=== PATIENT | female | born 1965 | race Caucasian/White ===

== ENCOUNTER 2020-01-01 15:23 | Outpatient (CLI) | payer BC, SELFPAY ==
--- NOTE | 2020-01-01 15:31 | MM_ITS ---
WS: [id number] BILATERAL DIGITAL SCREENING MAMMOGRAPHY WITH CAD CLINICAL INFORMATION: SCREENING HISTORY: Screening mammogram. No current complaints. COMPARISON: None. TECHNIQUE: Bilateral CC and MLO views. FINDINGS: The breasts are composed of heterogeneous fibroglandular density tissue, which can limit the detectio n of small underlying mass lesions. No suspicious mass, asymmetry, calcifications, or architectural d istortion. No evidence of malignancy. Vascular calcification. Benign punctate calcifications. MM/[place] [id number] IMPRESSION: BI-RADS: 2-Benign FOLLOW UP: 1 Year Follow-up Recommend return to annual screening mammography.
== END 2020-01-01 15:24 | disposition home or self-care (01) ==
PROVIDERS: PCP Family Medicine; Visit Provider Family Medicine
DX: Z12.31 Encounter for screening mammogram for malignant neoplasm of breast (principal)
CPT/HCPCS: 77067

== ENCOUNTER → 2020-01-20 08:00 | Outpatient (BNVA) | payer BC, SELFPAY | PROVIDERS: PCP Family Medicine; Referring Provider Family Medicine; Visit Provider Specialist | DX: R56.9 Unspecified convulsions (principal) | CPT/HCPCS: 95816 ==

== ENCOUNTER → 2020-02-12 10:14 | Outpatient (BNVA) | payer BC, SELFPAY | PROVIDERS: PCP Family Medicine; Referring Provider Family Medicine; Visit Provider Specialist | DX: G40.909 Epilepsy, unspecified, not intractable, without status epilepticus (principal) | CPT/HCPCS: 99204 ==

== ENCOUNTER 2020-03-26 06:55 | Outpatient (CLI) | payer BC, SELFPAY ==
[2020-03-26 07:15] VITALS: BMI 30.8
--- NOTE | 2020-03-26 08:02 | NMCV_ITS ---
NM kirti perf SPECT r/s* [id number] Mackenzie Bowser Age: 55 Gender: F : 1965 Exam Date: 03/26/2020 08:03 Ordering Phys: Alison Mireles MD Technologist: OSCAR Cox Exam Location: [facility] Indications: CHEST PAIN STRESS TEST Please see separate stress test report in [facility] for full findings IMAGE PROTOCOL Rest/Stress 1 Lexiscan Day Radiopharmaceutical Dose (mCi) Administration Site Administered by Rest: Tc-99m 11.0 IV OSCAR Cox Sestamibi Stress:Tc-99m 32.5 IV Alona Moreno, LOCAL CITY DRIVER Sestamibi Rest: 26-Mar-2020 60 Discovery 630 Stress: 26-Mar-2020 30 Discovery 630 0.4mg Lexiscan. Images obtained in supine and prone position. SPECT RESULTS Technical Quality: Excellent Raw Data Analysis: Normal Image Corrections: No attenuation or motion correction applied Summed Stress Score: 0 Summed Rest Score: 0 Summed Difference Score: 0 PERFUSION FINDINGS SPECT images demonstrate homogeneous tracer distribution throughout the myocardium. FUNCTIONAL RESULTS (calculated via Gated SPECT) Stress Image LV EF (%): 75 Stress EDV (mL):65 TID: 0.88 Stress ESV (mL):16 FUNCTIONAL FINDINGS: There is normal left ventricular systolic function. IMPRESSIONS Myocardial perfusion imaging is normal. LV systolic function is normal with EF of 75% Kemal Costa MD (Electronically Signed) Final Date: 26 March 2020 17:29 S
--- NOTE | 2020-03-26 08:42 | SUR.PREOP ---
Patient reports no pain or discomfort prior to the start of the procedure.
--- NOTE | 2020-03-26 08:45 | ECG_ITS ---
[facility] Test Date: 2020-03-26 Pat Name: Mackenzie Black Department: Room: Gender: Female Furniture Installer: : 1965 Requested By: Alison Mireles Order Number: [id number] Nails MD: Kemal Costa M.D. Interpretive Statements NAME OF STUDY: LEXISCAN SESTAMIBI STRESS TEST INDICATION: [Chest Pain] Procedure: At the baseline, the blood pressure was 144/91 mmHg, heart rate of 63 bpm. The electrocardiogram showed normal sinus bradycardia with normal axis with normal ST and T's. The Lexiscan was infused over a period of 20 seconds. A total of 0.4 mg of Lexiscan was infused. The stress phase was continued for a total of 5 minutes. Heart rate at the end of stress phase was 122 bpm, with blood pressure 148/88 mmHg. The EKG at the peak infusion revealed sinus tachycardia with no significant ST T wave changes. Sestamibi was injected 20 seconds after the Lexiscan was infused. Blood pressure at the end of recovery phase was 122/93 mmHg, with a heart rate of 86 bpm. Conclusion: 1. Normal EKG response to Lexiscan infusion. 2. No Lexiscan induced chest pain or cardiac arrhythmia. 3. Normal blood pressure and heart rate response. 4. Sestamibi/sestamibi perfusion scan pending; see separate report. Electronically Signed On 03-30-2020 9:40:53 POTATO SPOTTER by Kemal Costa M.D. [email or web address]
[2020-03-26] MEDS: regadenoson 0.4 Mg/5 ml Syringe IVP (08:50)
[2020-03-26 09:28] VITALS: BP 122/83; PULSE 93
--- NOTE | 2020-03-26 11:00 | USCV_ITS ---
Mackenzie Bowser Age: 55 Gender: F : 1965 Exam Date: 03/26/2020 07:13 Ordering Phys: Alison Mireles MD Technologist: Sharon Sevilla [place] [facility] [place]ication: CHEST PAIN BP: 136 / 81 HR: 66 Rhythm: Sinus Technical Quality: Fair MEASUREMENTS (Male / Female) Normal Values 2D ECHO LV Diastolic Diameter PLAX 3.6 cm 4.2 - 5.9 / 3.9 - 5.3 cm LV Systolic Diameter PLAX 2.9 cm LV Chamber Size 3.2 cm IVS Diastolic Thickness 1.7 cm 0.6 - 1.0 / 0.6 - 0.9 cm IVS Systolic Thickness 1.8 cm LVPW Diastolic Thickness 1.1 cm 0.6 - 1.0 / 0.6 - 0.9 cm LVPW Systolic Thickness 1.1 cm RV Chamber Size 1.6 cm LVOT Diameter 1.9 cm LV Ejection Fraction 2D Teich 44.0 % LV Ejection Fraction MOD 2C 60.9 % LV Ejection Fraction 2C AL 60.4 % LA Diameter 2.5 cm LA Width 1.7 cm LA Height 4.3 cm RA Width 2.4 cm RA Height 4.1 cm Aorta at Sinotubular Diameter 3.1 cm M-MODE LV Diastolic Diameter MM 4.8 cm 4.2 - 5.9 / 3.9 - 5.3 cm LV Systolic Diameter MM 3.4 cm LV Ejection Fraction MM Teich 55.4 % IVS Diastolic Thickness MM 1.2 cm 0.6 - 1.0 / 0.6 - 0.9 cm IVS Systolic Thickness MM 1.5 cm LVPW Diastolic Thickness MM 1.4 cm 0.6 - 1.0 / 0.6 - 0.9 cm LVPW Systolic Thickness MM 1.8 cm Aortic Annulus Diameter 3.5 cm LA Ao Ratio MM 1.0 MV E Point Septal Separation 0.4 cm DOPPLER AV Peak Velocity 120.0 cm/s LVOT Peak Velocity 83.0 cm/s AV Area Cont Eq vti 1.9 cm squared AV Area Cont Eq pk 2.0 cm squared MV Area PHT 3.4 cm squared Mitral E to A Ratio 0.6 MV E' Velocity 35.0 cm/s Mitral E to MV E' Ratio 8.3 Mitral E to LV E' Lateral Ratio 7.5 Mitral E to LV E' Septal Ratio 9.4 TV Peak E Velocity 41.0 cm/s Right Atrial Pressure 3.0 mmHg PV Peak Velocity 58.0 cm/s RV Acceleration Time 0.1 s RV Ejection Time 0.3 s RV AcT/ET 0.2 FINDINGS Left Ventricle Normal left ventricular size and systolic function. No regional wall motion abnormalities. LVEF is 50 to 55%. Mild left ventricular hypertrophy is noted. Grade 1 diastolic dysfunction is present. Right Ventricle The right ventricle is normal in size and function. Right Atrium The right atrium is normal in size. Left Atrium The left atrium is normal in size. Mitral Valve Structurally normal mitral valve without significant stenosis or prolapse. There is no mitral regurgitation. Aortic Valve Structurally normal aortic valve without significant sclerosis or stenosis. There is no aortic regurgitation. Tricuspid Valve Structurally normal tricuspid valve without significant stenosis. Trace tricuspid regurgitation. Insufficient TR jet to calculate RVSP. Pulmonic Valve Structurally normal pulmonic valve without significant stenosis. There is no pulmonic regurgitation. Pericardium Normal pericardium without effusion. Aorta Normal ascending aorta dimension. CONCLUSIONS LV systolic function is normal with EF of 50 to 55%. Grade 1 diastolic dysfunction is present. Mild left ventricular hypertrophy is noted. Trace tricuspid regurgitation is present. No comparison studies are available. Kemal Costa MD (Electronically Signed) Final Date: 05 April 2020 18:58 S
--- NOTE | 2020-03-26 11:45 | MR_ITS ---
WS: [id number] MRI HEAD WITHOUT CONTRAST TECHNIQUE: Sagittal T1, T2 axial, T2 axial FLAIR, axial and coronal T1 images, axial susceptibility w eighted imaging, axial diffusion weighted images, and coronal T2 images were obtained. CLINICAL INFORMATION: R55 Syncope and collapse COMPARISON: None. FINDINGS: No evidence of restricted diffusion to suggest acute ischemia. Ventricular system and basal cisterns are patent. Mild small vessel changes. Mild parenchymal volume loss. Normal cerebellum. Normal vascul ar flow voids at the skull base. No extra axial fluid collections. Paranasal sinuses and mastoid air cells are well aerated. No hemosiderin on the susceptibly weighted images. Normal optic chiasm and pituitary infundibulum. Mild symmetric atrophy involving the temporal lobes a nd hippocampal formations. MR/MR head wo con* [id number] IMPRESSION: 1. No evidence of restricted diffusion to suggest acute ischemia. 2. Mild small vessel changes with mild parenchymal volume loss. 3. No extra-axial fluid collections. No evidence of mass or mass effect. 4. No hemosiderin on susceptibly weighted images. 5. Mild symmetric atrophy involving the temporal lobes and hippocampal formati ons.
== END 2020-03-26 06:56 | disposition home or self-care (01) ==
PROVIDERS: PCP Family Medicine; Visit Provider Specialist
DX: R07.9 Chest pain, unspecified (principal); R55 Syncope and collapse
CPT/HCPCS: 70551; 78452; 93017; 93306; A9500; J2785

== ENCOUNTER 2020-03-31 20:00 | Outpatient (CLI) | payer BC, SELFPAY | END 2020-03-31 20:01 | disposition home or self-care (01) | LOC: SLEEP 04-01 14:56 | PROVIDERS: PCP Family Medicine; Visit Provider Internal Medicine | DX: G47.10 Hypersomnia, unspecified (principal) | CPT/HCPCS: 95810 ==

== ENCOUNTER → 2020-04-02 11:38 | Outpatient (BNVA) | payer BC, SELFPAY | PROVIDERS: PCP Family Medicine; Referring Provider Specialist; Visit Provider Specialist | DX: R55 Syncope and collapse (principal); R56.9 Unspecified convulsions | CPT/HCPCS: 95816 ==

== ENCOUNTER → 2020-04-08 15:20 | Outpatient (BNVA) | payer BC, SELFPAY | PROVIDERS: PCP Family Medicine; Visit Provider Specialist | DX: R55 Syncope and collapse (principal); E11.9 Type 2 diabetes mellitus without complications; Z79.84 Long term (current) use of oral hypoglycemic drugs; Z79.899 Other long term (current) drug therapy; I10 Essential (primary) hypertension | CPT/HCPCS: 99214 ==

== ENCOUNTER → 2020-05-06 15:25 | Outpatient (BNVA) | payer BC, SELFPAY | PROVIDERS: PCP Family Medicine; Visit Provider Internal Medicine | DX: Z01.818 Encounter for other preprocedural examination (principal); R07.9 Chest pain, unspecified; Z11.59 Encounter for screening for other viral diseases | CPT/HCPCS: 80048; 85025; 85610; 87635 ==

== ENCOUNTER 2020-05-11 08:54 | Day surgery (SDC) | payer BC, SELFPAY ==
[2020-05-11] VITALS (20 sets, daily range): BP systolic 131–162; BP diastolic 73–102; PULSE 59–84; RESP 9–23; TEMP 37; O2SAT 95–98; BMI 30.8
--- NOTE | 2020-05-11 09:00 | XACV_ITS ---
Ht: 160 cm Wt: 79 kg BSA: 1.90 m2 Gender: Female : 1965 Any Known Allergies: No known allergies Exam Priority: Routine Procedure(s): Procedure Description: Diagnostic procedure Procedure Description: Left ventriculography Procedure Description: Coronary Angiography Procedure Description: Left heart cath Diagnostic Cath Status: Elective Diagnostic Findings * LM has mild luminal irregularities.. * LAD arises from left main artery. It gives rise to 2 diagonal arteries. LAD is free of significant disease and has minor luminal irregularities. Second diagonal branch is a small vessel with ostial to proximal 70% stenosis.. * CX arises from left main artery. It gives rise to moderate-sized OM branch. Left circumflex artery is free of significant disease and has minor luminal irregularities.. * RCA arises from right coronary cusp. Has minor luminal irregularities.. * Coronary angiography shows right dominance. Conclusions 1. There is 70% stenosis of second diagonal artery. It is a small sized vessel. 2. No significant disease noted in the Left Main, LAD, Circumflex, or RCA coronary arteries. 3. Normal left ventricular systolic function. Ejection fraction of 55%. Recommendations * If patient keeps getting chest pain, can consider adding Imdur. Diagnostic RX Recommendation: medical therapy and/or counseling Ventriculography Ejection Fraction: 55.0 % Pressures Phase:Rest AO : 145 / 73 ( 107 ) @ 4:19:00 AM 145 / 63 ( 104 ) @ 4:19:00 AM LV : 128 / -10 / @ 4:18:00 AM 138 / -18 / @ 4:19:00 AM 127 / -13 / @ 4:19:00 AM Valves Phase:DefaultPhase AV : 0.0 @ 10:29:45 AM AV Mean Gradient: 0.0 @ 10:29:45 AM Clinical Evaluation EBL: 5mL-10mL Procedural Details Procedure Consent Obtained. Pre-Procedure Time Out. Identified patient by full name and date of as verbalized by the patient/guarantor. Does the consent match the physician's order: Yes. Accurate & Complete Informed Consent: Yes. Inpatient/Outpatient History & Physical on Chart: Yes. If H&P is completed, is and addenduem needed: No; If yes, is the addendum complete: N/A. Visualize and Verify Site with Patient/Guarantor: N/A. Relevant Radiology Images available: Yes. Pre-op teaching completed and patient verbalized understanding. The risks, benefits, and alternatives of sedation and/or procedure were discussed by physician. The patient agrees to continue. Procedure started. [facility] Clinical Fraility Score: 2: Well. Engine Turner Indications: Suspected CAD. Chest Pain Symptom Assessment: Typical Angina Symptoms. Cardiovascular Instability: No. Correct patient, site and procedure confirmed by cath team. Current diagnosis: Chest Pain. PERRLA. Strong, equal hand program counselor bilaterally. Lungs clear x 5 lobes. IV Site on Arrival: 20 gauge in the right anticubital. IV Fluids: 0.9% NaCl at KVO. 0 mL infused prior to asphalt plant laborer. Pre Procedural Pulses: bilateral dorsalis pedis was 2+. Pre Procedural Pulses: bilateral posterior tibial was 2+. Pre Procedural Pulses: bilateral radial was 3+. Oxygen started at 2liters/min via nasal canula. bilateral groins was prepped with chloroprep then draped in the usual sterile fashion. right radial was prepped with chloroprep then draped in the usual sterile fashion. Physician arrived. Equipment: 6F - Radial. Cardiac Cath Pack. ACIST Manifold Kit Model BT 2000. Heparinized Saline (2 units/mL), 1000 mL bag. Baseline sample Acquired. HR: 64 BPM. Physician scrubbed in. Immediate Pre-Procedure Time Out. Correct Patient: Yes; Correct Procedure: Yes; Correct Site: Yes; Correct Patient Position: Yes; Correct Supplies: Yes; Dried Flammable Prep: Yes; Blood Products Available: No;. Lidocaine 1% infiltrated to the right radial. Arterial access obtained. A 5 colombian TIG catheter in over wire. Multiple views taken of left coronary artery. Catheter redirected to the RCA. Multiple views taken of right coronary artery. Catheter removed over the exchange wire. A 5 colombian Angled Pig catheter in over wire. EDP Sample taken: LV 128/-11,6; HR: 96 BPM; SpO2: 97%. LV gram performed in CRUZ @ 10 mL/second for a total of 30 mL. EDP Sample taken: LV 138/-19,3; HR: 100 BPM; SpO2: 98%. Pullback taken: LV 127/-14,-1; AO 145/73(107); Mean: 0mmHg, Peak to Peak: 0mmHg, SEP: 7sec/min; HR: 91 BPM; SpO2: 97%. Catheter out. TR band placed. Hemostasis obtained. A TR Band was successful obtaining hemostatsis at the Right Femoral artery insertion site. Post Procedure: Pulses reassessed and unchanged. PERRLA. Strong, equal hand program counselor bilaterally. No VTE prophylaxis required. Medication's Wasted: Lidocaine 1% = 18 mL. Medication's Wasted: Nitro = 49.8 mg. Medication's Wasted: Heparin = 1000 units. Total IV fluids: 14 mL. Post-op diagnosis: Non obstructive CAD. Complications: None. Estimated blood loss: 5mL-10mL. Vital chart was stopped. Procedure completed. Patient transferred by wheelchair to 1st floor. Access Site Site: Right Femoral artery Sheath Size: 6 Fr Hemostasis Method: TR Band Hemostasis Success: Successful Procedure Medications Start: 9:58 AM Stop: 9:58 AM Medication: Versed Amount: 1 mg Route: I.V. Start: 9:58 AM Stop: 9:58 AM Medication: Fentanyl Amount: 50 mcg Route: I.V. Start: 10:01 AM Stop: 10:01 AM Medication: Versed Amount: 1 mg Route: I.V. Start: 10:04 AM Stop: 10:04 AM Medication: Fentanyl Amount: 50 mcg Route: I.V. Start: 10:07 AM Stop: 10:07 AM Medication: Versed Amount: 1 mg Route: I.V. Start: 10:09 AM Stop: 10:09 AM Medication: Heparin Amount: 5000 units Route: I.V. Start: 10:11 AM Stop: 10:11 AM Medication: Versed Amount: 1 mg Route: I.V. I, the attending physician, have reviewed and verified all procedure medications. Yes, all medications given per verbal order History/Risk Factors Hypertension: Yes Dyslipidemia: Yes Peripheral Arterial Disease (PAD): No Myocardial Infarction (NC): No Obesity: No Renal Disease: No Tobacco Use: Never Prior Interventions PCI: No CABG: No Valve Surgery: No Report Signatures Finalized by Kemal Costa MD on 05/11/2020 06:35 PM
[2020-05-11] MEDS: diphenhydrAMINE 50 mg Capsule PO (09:11)
--- NOTE | 2020-05-11 09:54 | P.HP_ITS ---
Providers/Chief Complaint Primary Care Provider: Marine Brown MD History of Present Illness 55-year-old woman with past medical history of hypertension, hyperlipidemia, was referred by Dr. Mireles for evaluation of pause noted on event monitor and syncopal episodes. Patient had 3 syncopal/presyncopal episodes before she was put on a heart monitor. On night of 02/19/2020, at 1:56 AM patient had long pause of 4.2 seconds on secured entrance monitor. Patient was asleep at the time. Patient has been having dizzy and presyncopal episodes. Her chest pain has been getting worse. She feels heavy pressure in the middle of the chest. She says at times it is associated with sweating. He has occasionally noted that it has radiated her jaw as well. It is not always exertional. She had undergone nuclear stress test that was normal however she says chest pain frequency and intensity is increasing and she feels very worried because of the heavy pressure. Review of Systems Narrative: CONSTITUTIONAL: No fever chills weight loss or gain or night sweats. [] HEENT: Normocephalic, atraumatic.[] RESPIRATORY: No cough, sputum, hemoptysis or wheezing.[] CARDIOVASCULAR: Has chest pain,No shortness of breath, PND, orthopnea, lower extremity edema, presyncope or syncope. [] GI: no nausea vomiting diarrhea. [] WARD HELPER: Has dizziness and presyncopal episodes, No numbness, tingling, weakness or loss of function in any part of the body. [] MUSCULOSKELETAL: No knee or joint pain or rashes. [] Medications/Allergies Home Medications Medication Instructions Recorded Confirmed Last Taken Type atorvastatin 20 mg tablet 20 mg PO DAILY 01/20/20 05/08/20 05/01/20 History dulaglutide 0.75 mg/0.5 mL See Rx Instructions .ROUTE .COMPLEX 01/20/20 05/08/20 05/07/20 History subcutaneous pen injector escitalopram oxalate 20 mg tablet 20 mg PO DAILY 01/20/20 05/08/20 05/01/20 History losartan 25 mg tablet 25 mg PO DAILY 01/20/20 05/08/20 05/01/20 History metformin 500 mg tablet 500 mg PO BID tab 03/04/20 05/08/20 05/01/20 History Levemir Flexpen 70 units SUBCUT DAILY 05/08/20 05/11/20 05/10/20 History Allergies Allergy/AdvReac Type Severity Reaction Status Date / Time No Known Allergies Allergy Verified 04/08/20 15:51 PFSH Acute PFSH: Medical History Hyperlipidemia Hypertension Seizures Syncope Family History Grandmother Dementia Mother Diabetes Father Hyperlipidemia Denies family history of Cancer Vitals/I&O/Wt Last Vital Signs Temp 98.6 F 05/11/20 09:39 Pulse 74 05/11/20 09:39 Resp 20 H 05/11/20 09:39 BP 131/102 05/11/20 09:39 Pulse Ox 98 05/11/20 09:39 Weight last 48 hrs Weight 174 lb Physical Exam Narrative: EXAM NARRATIVE: GENERAL: Patient is alert, awake and oriented x3. [] NECK: No jugular vein distension. [] HEENT: No cyanosis. No icterus. No pallor. [] HEART: Regular S1 and S2. No murmur, rub or gallop. [] LUNGS: Clear to auscultate bilaterally. [] ABDOMEN: Soft, nontender and nondistended. Positive bowel sounds. No guarding, rebound or tenderness. [] CENTRAL NERVOUS SYSTEM: Grossly nonfocal. [] EXTREMITIES: Lower extremities with no edema bilaterally. Pulses palpable in the lower extremities, both dorsalis pedis and posterior tibial. [] A&P Assessment and plan (1) Hypertension: Status: Acute (2) Chest pain: Status: Acute (3) Worsening angina: Status: Acute (4) Syncope: Status: Acute (5) Hyperlipidemia: Status: Acute Patient has been having worsening angina and has risk factors for coronary artery disease. She also had syncopal episodes with no significant pause noted on event monitor however at that time she was sleeping. Stress test was normal however given her risk factors and typical worsening chest pain, we will proceed with coronary angiography with possible percutaneous coronary intervention. I have discussed in details the risks and benefits of the procedure. Risks including bleeding, infection, abnormal kidney function, abnormal heart rhythm, heart attack, stroke or have been described. Patient understands the risks and benefits and wants to proceed with the procedure. Attestations Medical Necessity Statement*: Care not expected to cross 2 midnights. Coding Level of Care Code Acute Tax Senior Associate for g Fwd Diagnoses Hypertension I10 Chest pain R07.9 Worsening angina I20.0 Syncope R55 Hyperlipidemia E78.5
== END 2020-05-11 15:00 | disposition home or self-care (01) ==
LOC: CCL 08:55 → CSU 11:09
PROVIDERS: PCP Family Medicine; Visit Provider Internal Medicine
DX: I25.110 Atherosclerotic heart disease of native coronary artery with unstable angina pectoris (principal); I10 Essential (primary) hypertension; R07.9 Chest pain, unspecified; R55 Syncope and collapse; E78.5 Hyperlipidemia, unspecified
CPT/HCPCS: 12345; 36415; 93452; C1769; C1887; C1894; J1644; J2250; J3010; J3490; J7030; Q0163; Q9967

== ENCOUNTER → 2020-06-25 12:59 | Outpatient (BNVA) | payer BC, SELFPAY | PROVIDERS: PCP Family Medicine; Visit Provider Internal Medicine | DX: Z01.812 Encounter for preprocedural laboratory examination (principal) | CPT/HCPCS: 87635 ==

== ENCOUNTER 2020-06-29 05:50 | Day surgery (SDC) | payer BC, SELFPAY ==
[2020-06-26 10:42] VITALS: BMI 31.8
[2020-06-29 06:32] VITALS: BP 163/110; PULSE 60; RESP 12; TEMP 36.8; O2SAT 99
[2020-06-29 06:48] LABS: Basophils # 0.1 10^3/uL (0.0-0.1); Basophils % 0.8 %; Eosinophils # 0.2 10^3/uL (0.0-0.8); Eosinophils % 2.3 %; Hematocrit 38.2 % (37.0-47.0); Hemoglobin 12.8 g/dL (11.5-15.3); Lymphocytes # 3.2 10^3/uL (0.8-4.8); Lymphocytes % 49.3 %; Mean Corpuscular HGB Conc 33.5 g/dL (30.0-36.0); Mean Corpuscular Hemoglobin 30.8 pg (28.0-34.0); Mean Corpuscular Volume 91.8 fL (81-99); Mean Platelet Volume 9.8 fL (7.4-10.4); Monocytes # 0.4 10^3/uL (0.2-0.9); Monocytes % 6.5 %; Neutrophils # 2.65 10^3/uL (1.8-7.7); Neutrophils % 40.9 %; Nucleated Red Blood Cells % 0 %; Platelet Count 213 10^3/cmm (130-400); Red Blood Count 4.16 10^6/uL (4.1-5.3); White Blood Count 6.5 10^3/uL (4.0-10.0)
[2020-06-29] MEDS: cephALEXin 500 mg Capsule 2000 MG PO (07:01)
--- NOTE | 2020-06-29 07:41 | W.PM.OPSUD ---
Surgery/Procedure H&P Update DATE OF PROCEDURE: June 29, 2020 DATE H&P PERFORMED: 06/15/20 H&P UPDATE INFORMATION: I have reviewed H&P completed within last 30 days PREOP DIAGNOSIS: Syncope/near syncope PRIMARY INDICATION FOR PROCEDURE: Same as above PLANNED PROCEDURE: Operation Date: 06/29/20 07:00 Proposed Procedures p Loop Recorder Insertion(Not Applicable) - Naresh Grant MD
--- NOTE | 2020-06-29 07:42 | PM.OP ---
Operative Report Date of procedure: June 29, 2020 Pre-op Diagnosis: Syncope/near syncope Procedure: LOCATION: Cardiac Catheterization Laboratory REFERRING PROVIDER: Dr. Costa PREOPERATIVE DIAGNOSIS: Syncope/near syncope. POSTOPERATIVE DIAGNOSIS: The same. ESTIMATED BLOOD LOSS: None. COMPLICATIONS: None. BRIEF HISTORY: 55-year-old white female with history of hypertension, diabetes is presenting with complaints of syncope/near syncope. She had episodes of pauses on event monitor but apparently these pauses were noted while she was asleep. She had no documented symptomatic bradycardia arrhythmias while awake. Because of her ongoing symptoms, for further evaluation of the symptoms, an implantable bus driver/monitor was requested. PROCEDURE: The procedure was explained to the patient in detail with the risks and benefits. The risk of bleeding, hematoma, infection and other complications were explained in detail with the patient, which she understood well and consented to proceed. She was given 2 g of Keflex p.o., 30 minutes prior to the procedure. The patient was brought to the CPRU. The left side of the chest was cleaned and draped in a sterile fashion. 1% Xylocaine was used as local anesthetic agent. An incision was made in the left fourth intercostal space. Making use of the application device, the implantable bus driver/monitor was inserted, subcutaneously. 5 minutes of manual pressure was applied, at the puncture site.The subcutaneous tissue was approximated using 3-0 Surgilon . No bleeding or hematoma. .Steri-Strips were applied over the insertion site followed by a sterile dressing. Patient tolerated the procedure very well and there are no complications IMPLANTED DEVICE Reveal LINQ Model number: [id number] Serial number: [id number] Make: Medtronic Parameters: Standard settings are applied -tachycardia rate of 150 beats per minute , bradycardia rate of 40 beats per minute and a pause of 3 seconds ; symptom recording -4 episodes of 7.5 minutes. Atrial fibrillation detection was turned on- recording threshold of ->6 minutes. Sensitivity was kept at 0.035 mV The R wave sensing was 0.29 mV
[2020-06-29 07:50] VITALS: BP 145/97; PULSE 61; RESP 14; TEMP 36.8; O2SAT 100
== END 2020-06-29 08:25 | disposition home or self-care (01) ==
PROVIDERS: PCP Family Medicine; Visit Provider Internal Medicine Cardiovascular Disease
PROC: (CPT 33285; principal; 2020-06-29 07:00)
DX: R42 Dizziness and giddiness (principal); I10 Essential (primary) hypertension; E78.5 Hyperlipidemia, unspecified
CPT/HCPCS: 12345; 33285; 85025; C1764; C1769

== ENCOUNTER 2020-11-10 10:07 | Outpatient (CLI) | payer BC, SELFPAY ==
--- NOTE | 2020-11-10 10:24 | CT_ITS ---
WS: [id number] CT LUMBAR SPINE TECHNIQUE: Noncontrast CT of the lumbar spine with coronal and sagittal reformatted images. CLINICAL INFORMATION: LOW BACK PAIN, RADIATING TO LEFT LEG COMPARISON: None. DLP: 1930.[address] scans at [facility] use at least one of these dose optimization techniques: automat ed exposure control; mA and/or kV adjustment per patient size (includes targeted exams where dose is matched to clinical indication); or iterative reconstruction. FINDINGS: Degenerative arthritis worse at the L3-4 level with disc space narrowing and endplate sclerosis. Mild disc space narrowing L5-S1. Disc bulging worse at L4-L5 and L5-S1. L1-L2: Normal. L2-L3: Mild annular bulging. Mild facet arthropathy. Spinal canal and foramen are patent. L3-L4: Disc desiccation at this level with complete loss of the disc space. Endplate sclerosis with s ubchondral cystic change. Osteophytic ridging results in moderate central canal stenosis. Moderate fa cet arthropathy. Right eccentric disc bulging with moderate right and no significant left foraminal n arrowing. L4-L5: Disc bulging eccentric to the left with mild central canal stenosis. Impingement on the left s ubarticular recess. Moderate facet arthropathy. Left foraminal protrusion impinges the exiting left L 4 nerve root with moderate left foraminal narrowing. Mild right foraminal narrowing. L5-S1: Mild disc bulging with slight effacement of ventral thecal sac. Right eccentric disc osteophyt e complex impinges the exiting right L5 nerve root. Moderate right foraminal narrowing. Left foramen is patent. Adrenal glands are normal. Cholecystectomy clips. CT/CT lumbar spine wo con* [id number] IMPRESSION: 1. Advanced disc desiccation L3-4 with complete loss of disc space height. End plate sclerosis L3-4 with subchondral cystic change. 2. Moderate central canal stenosis L3-4 with moderate right L3-4 foraminal rehan rowing. 3. Left foraminal protrusion L4-5 impinges the exiting left L4 nerve root with moderate left foraminal narrowing. 4. Mild central canal stenosis L4-5. 5. Moderate right L5-S1 foraminal narrowing impinges the exiting right L5 nerv e root laterally.
== END 2020-11-10 10:08 | disposition home or self-care (01) ==
PROVIDERS: PCP Family Medicine; Visit Provider Family Medicine
DX: M54.16 Radiculopathy, lumbar region (principal); M48.061 Spinal stenosis, lumbar region without neurogenic claudication; M51.26 Other intervertebral disc displacement, lumbar region
CPT/HCPCS: 72131

== ENCOUNTER → 2020-12-03 13:34 | Outpatient (BNVA) | payer BC, SELFPAY | PROVIDERS: PCP Family Medicine; Referring Provider Family Medicine; Visit Provider Orthopaedic Surgery | DX: M47.896 Other spondylosis, lumbar region (principal); M54.5 Low back pain | CPT/HCPCS: 72120 ==

== ENCOUNTER → 2020-12-18 08:42 | Outpatient (BNVA) | payer BC, SELFPAY | PROVIDERS: PCP Nurse Practitioner Family; Referring Provider Orthopaedic Surgery; Visit Provider Anesthesiology Pain Medicine | DX: G89.29 Other chronic pain (principal); M54.42 Lumbago with sciatica, left side; M48.062 Spinal stenosis, lumbar region with neurogenic claudication; M47.816 Spondylosis without myelopathy or radiculopathy, lumbar region; M54.16 Radiculopathy, lumbar region; Z87.891 Personal history of nicotine dependence | CPT/HCPCS: 99205 ==

== ENCOUNTER 2020-12-31 08:23 | Outpatient (CLI) | payer BC, SELFPAY ==
--- NOTE | 2020-12-31 | IR_ITS ---
WS: [id number] LUMBAR MYELOGRAM HISTORY: LOW BACK PAIN COMPARISON: None available. FLUOROSCOPY TIME: 3.0 minutes. Procedure, risks and complications were explained to the patient. Risks including bleeding, infection , headaches, allergic reaction and seizures. Consent has been obtained. With the patient in prone position the skin over the lumbar region is cleansed with ChloraPrep and an esthetized with lidocaine. 22-gauge spinal needle is inserted into the thecal sac at the appropriate level determined by fluoroscopy. Omnipaque 240; 12 ml is injected slowly under fluoroscopy with no co mplications. Needle bevel is perpendicular to the longitudinal fibers of the dura. Stylet is reinsert ed prior to removal of the needle. Patient tolerated the procedure well. Patient will proceed to CT f or further evaluation. Severe disc space narrowing and desiccation at L3-4 with osteophyte formation. Mild disc space narrow ing at L4-5 and L5-S1. Straightening of the normal lumbar lordosis. There is mild extrinsic mass effe ct upon the ventral thecal sac at L3-4 and L4-5. Scattered calcifications in aorta. Prior cholecystectomy. IR/IR myelogram sp lumbar [id number] IMPRESSION: 1. Uncomplicated lumbar myelogram. 2. Severe degenerative disc disease at L3-4 with mild at L4-5 and L5-S1. 3. Straightening of the normal lumbar lordosis. 4. Mild extrinsic mass effect upon the ventral thecal sac at L3-4 and L4-5. Th is will be better evaluated on the CT evaluation to follow.
--- NOTE | 2020-12-31 08:48 | CT_ITS ---
WS: [id number] CT MYELOGRAM LUMBAR SPINE HISTORY: M48.062 - Spinal stenosis, lumbar region with neurogenic claudication. TECHNIQUE: Contiguous 2.5 mm axial imaging performed from T12 through the mid sacral level. Bone and soft tissue windows reviewed. Sagittal and coronal reformats are submitted and reviewed. DLP: 1598.[address] scans at [facility] use at least one of these dose optimization techniques: automat ed exposure control; mA and/or kV adjustment per patient size (includes targeted exams where dose is matched to clinical indication); or iterative reconstruction. COMPARISON: 11/10/2020 Good distention of the thecal sac with contrast. Severe disc space narrowing and desiccation at L3-4. There is near bone upon bone with loss of the disc. Air along the L3-4 disc space with osteophytes e xtending anterior and posterior. There is osteophyte encroachment and deformity of the ventral thecal sac at the L3-4 level. No fractures. Additional mild disc space narrowing and desiccation at L5-S1. L1-L2: Very slight annular disc bulging with a tiny calcification at the disc. No stenosis. L2-L3: Mild annular disc bulging with ligamentum flavum flavum hypertrophy. No stenosis. L3-L4: Diffuse annular disc bulging and osteophytic ridging. Osteophyte and disc encroachment upon th e ventral thecal sac. Additional encroachment into the central canal by ligamentum flavum and facet h ypertrophy. Moderate central and bilateral subarticular recess and foraminal stenosis. Osteophyte in the LEFT subarticular recesses encroaching upon the L4 nerve root. L4-L5: Moderate annular disc bulging with a focal LEFT paracentral and foraminal disc protrusion. Dis c protrusion is contacting and displacing the LEFT thecal sac and L5 nerve root and also extending in to the foramen contacting the L4 nerve root. Mild RIGHT with moderate to severe LEFT foraminal stenos is. Mild central stenosis. L5-S1: Mild annular disc bulging and osteophytic ridging. Disc osteophyte complexes extend into the f oramen. Largest on the RIGHT causing moderate to severe RIGHT foraminal stenosis and mild LEFT forami nal stenosis. Most significant contact on the RIGHT L5 nerve root. Atherosclerosis aorta and common iliac arteries. Mild thickening of the LEFT adrenal gland. CT/CT lumbar spine w con [id number] IMPRESSION: 1. Severe degenerative disc desiccation at L3-4 with complete loss of disc spa ce height. 2. Moderate central, bilateral subarticular and foraminal stenosis at L3-4. Mo re focal osteophyte in the LEFT subarticular recess with encroachment upon the L4 nerve root. 3. LEFT paracentral and foraminal disc protrusion at L4-5 with the disc contac ting the L4 and L5 nerve roots. Moderate to severe LEFT foraminal stenosis. 4. Mild central and RIGHT foraminal stenosis at L4-5. 5. Disc osteophyte contact in the exiting RIGHT L5 nerve root at L5-S1. Modera te to severe RIGHT L5-S1 foraminal stenosis.
== END 2020-12-31 08:24 | disposition home or self-care (01) ==
PROVIDERS: PCP Nurse Practitioner Family; Visit Provider Orthopaedic Surgery
DX: M48.062 Spinal stenosis, lumbar region with neurogenic claudication (principal); M51.36 Other intervertebral disc degeneration, lumbar region; M48.061 Spinal stenosis, lumbar region without neurogenic claudication; M25.78 Osteophyte, vertebrae; M51.37 Other intervertebral disc degeneration, lumbosacral region
CPT/HCPCS: 62304; 72120; 72132; Q9966

== ENCOUNTER → 2021-01-08 12:33 | Outpatient (BNVA) | payer BC, SELFPAY | PROVIDERS: PCP Nurse Practitioner Family; Visit Provider Anesthesiology Pain Medicine | DX: Z01.812 Encounter for preprocedural laboratory examination (principal); E11.9 Type 2 diabetes mellitus without complications; G89.29 Other chronic pain; M54.16 Radiculopathy, lumbar region | CPT/HCPCS: 36416; 64483; 64484; 82962; J1100; J3490 ==

== ENCOUNTER → 2021-01-22 13:38 | Outpatient (BNVA) | payer BC, SELFPAY | PROVIDERS: PCP Nurse Practitioner Family; Visit Provider Anesthesiology Pain Medicine | DX: Z01.812 Encounter for preprocedural laboratory examination (principal); E11.9 Type 2 diabetes mellitus without complications; G89.29 Other chronic pain; M54.16 Radiculopathy, lumbar region | CPT/HCPCS: 36416; 64483; 64484; 82962; J1100; J3490 ==

== ENCOUNTER → 2021-02-04 14:13 | Outpatient (BNVA) | payer BC, SELFPAY | PROVIDERS: PCP Nurse Practitioner Family; Visit Provider Anesthesiology Pain Medicine | DX: G89.29 Other chronic pain (principal); M48.062 Spinal stenosis, lumbar region with neurogenic claudication; M47.816 Spondylosis without myelopathy or radiculopathy, lumbar region; M54.16 Radiculopathy, lumbar region; M79.605 Pain in left leg | CPT/HCPCS: 99214 ==

== ENCOUNTER → 2021-02-16 13:21 | Outpatient (BNVA) | payer BC, SELFPAY | PROVIDERS: PCP Nurse Practitioner Family; Visit Provider Anesthesiology Pain Medicine | DX: G89.29 Other chronic pain (principal); M47.816 Spondylosis without myelopathy or radiculopathy, lumbar region | CPT/HCPCS: 64493; 64494; 64495 ==

== ENCOUNTER → 2021-03-05 10:52 | Outpatient (BNVA) | payer BC, SELFPAY | PROVIDERS: PCP Nurse Practitioner Family; Visit Provider Anesthesiology Pain Medicine | DX: G89.29 Other chronic pain (principal); M48.062 Spinal stenosis, lumbar region with neurogenic claudication; M47.816 Spondylosis without myelopathy or radiculopathy, lumbar region; M54.16 Radiculopathy, lumbar region; M79.605 Pain in left leg; E11.9 Type 2 diabetes mellitus without complications; I10 Essential (primary) hypertension; Z87.891 Personal history of nicotine dependence | CPT/HCPCS: 99214 ==

== ENCOUNTER → 2021-03-31 13:29 | Outpatient (BNVA) | payer BC, SELFPAY | PROVIDERS: PCP Nurse Practitioner Family; Visit Provider Anesthesiology Pain Medicine | DX: M47.816 Spondylosis without myelopathy or radiculopathy, lumbar region (principal); M54.16 Radiculopathy, lumbar region; Z87.891 Personal history of nicotine dependence | CPT/HCPCS: 64493; 64494; 64495; J3490 ==

== ENCOUNTER → 2021-04-21 10:55 | Outpatient (BNVA) | payer BC, SELFPAY | PROVIDERS: PCP Nurse Practitioner Family; Visit Provider Anesthesiology Pain Medicine | DX: G89.29 Other chronic pain (principal); M48.062 Spinal stenosis, lumbar region with neurogenic claudication; M47.816 Spondylosis without myelopathy or radiculopathy, lumbar region; M54.16 Radiculopathy, lumbar region; M25.551 Pain in right hip; M79.605 Pain in left leg | CPT/HCPCS: 99214 ==

== ENCOUNTER → 2021-05-12 13:50 | Outpatient (BNVA) | payer BC, SELFPAY | PROVIDERS: PCP Nurse Practitioner Family; Visit Provider Anesthesiology Pain Medicine | DX: E11.9 Type 2 diabetes mellitus without complications (principal); Z01.812 Encounter for preprocedural laboratory examination | CPT/HCPCS: 36416; 82962 ==

== ENCOUNTER → 2021-05-25 13:41 | Outpatient (BNVA) | payer BC, SELFPAY | PROVIDERS: PCP Nurse Practitioner Family; Visit Provider Anesthesiology Pain Medicine | DX: Z01.812 Encounter for preprocedural laboratory examination (principal) | CPT/HCPCS: 36416; 82962 ==

== ENCOUNTER 2021-06-30 10:40 | Emergency (ER) | payer BC, SELFPAY ==
[2021-06-30 10:47] VITALS: PULSE 81; RESP 18; TEMP 36.9; O2SAT 100; BMI 30.9
--- NOTE | 2021-06-30 10:53 | CT_ITS ---
WS: [id number] CT HEAD NONCONTRAST HISTORY: possible stroke yesterday TECHNIQUE: Contiguous axial imaging performed through the brain in 2.5 mm imaging. Bone and soft tiss ue windows. Sagittal and coronal reformats reviewed. All CT scans at [facility] use at least one of these dose optimization techniques: automated exposure control; mA and/or kV adjustment per pa tient size (includes targeted exams where dose is matched to clinical indication); or iterative recon struction. DLP: 939.74 mGy.cm COMPARISON: None available. No acute intracranial hemorrhage, midline shift or mass effect. Mild bilateral frontal atrophy. No midline shift. Ventricles: Normal size with no hydrocephalus. No inferior displacement of cerebellar tonsils. Paranasal sinuses: As visualized are clear. Mastoid air cells: Well pneumatized. Calvarium and scalp: Skull is intact with no soft tissue edema or swelling. CT/CT head wo con* [id number] IMPRESSION: 1. No acute intracranial hemorrhage or edema. 2. No focal area of sulcal effacement. 3. Mild bifrontal atrophy.
--- NOTE | 2021-06-30 14:23 | CT_ITS ---
WS: [id number] CT ANGIOGRAM CEREBRAL AND CAROTID ARTERIES HISTORY: stroke symptoms, Left arm weakness TECHNIQUE: CT angiogram is performed of the carotid and cerebral arteries. During arterial injection imaging is obtained from the skull vertex to the aortic arch in 1.25 mm imaging. Coronal and sagittal reformats are submitted. Additional multi planar reformats of the carotid and cerebral arteries are submitted, MIP imaging also reviewed. NASCET criteria utilized. [facility] at least one of these dose optimization techniques: automated exposure control; mA and/or kV adjust ment per patient size (includes targeted exams where dose is matched to clinical indication); or iter ative reconstruction. CONTRAST: Omnipaque 350; 95 mL IV. DLP: 2237.93 mGy.cm COMPARISON: None available. Carotid Angiogram: Right carotid: Common carotid artery: Arises normally from the innominate artery. No significant plaque or stenosis. Internal carotid artery: Small noncalcified plaque at the bifurcation. No high-grade stenosis. External carotid artery: Patent. Left carotid: Common carotid artery: Arises normally from the aorta. No significant plaque or stenosis. Internal carotid artery: Small amount of intimal thickening and calcified plaque. No high-grade steno sis. External carotid artery: Patent. Right vertebral artery: Unremarkable. Left vertebral artery: Unremarkable. Arises normally from the subclavian artery. Subclavian arteries: No stenosis or significant abnormality. Upper thorax: Normal. Thyroid gland: Multiple small nodules in the LEFT thyroid. Osseous structures: Straightening and reversal normal cervical lordosis centered at C5-6. CEREBRAL ANGIOGRAM: Intracranial vertebral arteries: Normal with no significant atherosclerosis. Basilar artery: No significant stenosis or occlusion. No aneurysm. Intracranial Internal carotid arteries: Small noncalcified plaque through the cavernous sinuses. No h igh-grade stenosis. No thrombus identified. Middle cerebral arteries: Normal. Anterior cerebral arteries and ACOM: Normal. Posterior cerebral arteries and PCOM's: LEFT posterior cerebral artery is normal. Persistent ci rculation RIGHT posterior cerebral. Dural venous sinuses are normally enhancing. Mastoid air cells: Normal. Paranasal sinuses: Normal. Calvarium: Normal. CT/CT angio headneck* [id number] IMPRESSION: 1. No significant carotid artery stenosis. 2. Mild plaque in the cervical carotid bifurcations and intracranial carotid a rteries. 3. No aneurysms.
--- NOTE | 2021-06-30 14:33 | W.ED.NEUROSD ---
Documented by User: DK Frederick 06/30/21 16:12 HPI - Neuro Symptoms/Deficit General: Chief Complaint: Neuro Symptoms/Deficit Stated Complaint: Possible Stroke on 06/29 Time Seen by Provider: 06/30/21 15:32 History of Present Illness: Patient is a 56-year-old female who comes to the ED with stroke like symptoms. Patient says her symptoms started around 11 AM yesterday June 29. Symptoms described as left arm weakness and trouble functioning and moving left arm. Patient describes having trouble grabbing and holding her wallet. She went and laid down after symptoms started yesterday and took a nap. She woke up and her symptoms had improved throughout the rest of the day yesterday. She still having some residual weakness and lack of coordination in left arm, but it is better than it was yesterday. Denies any other symptoms. She has never had any episode like this before in the past. Denies any headache. Associated symptoms: Deny chest pain, headache(s), nausea or vomiting Review of Systems Const: Denies: fever(s), chills or fatigue Eyes: Denies: change in vision or eye discomfort ENMT: Denies: throat pain, odynophagia, nasal discharge or nasal congestion Card: Denies: chest pain, palpitations, edema, swelling of feet/ankles, dyspnea on exertion or orthopnea Resp: Denies: dyspnea, productive cough or non-productive cough GI: Denies: abdominal pain, nausea, vomiting, diarrhea, constipation or hematochezia : Denies: flank pain, dysuria or hematuria Musc: Denies: neck pain, back pain or extremity swelling Skin/Breast: Denies: rash or new lesions Neuro: Reports: weakness in extremities (left arm) and lack of coordination (left arm); Denies: headache(s) or numbness in extremities PFSH ED PFSH: Medical History (Updated 07/05/21 @ 08:32 by Mac Thompson DO) No significant past medical history Obesity Surgical History (Updated 07/05/21 @ 08:32 by Mac Thompson DO) No significant past surgical history Social History (Updated 07/05/21 @ 08:32 by Mac Thompson DO) Smoking and tobacco status: never smoked Alcohol intake: never NIH stroke score Score: Total Score: 0 Course Vital Signs: Vital signs: Vital Signs Temperature 98.4 F 06/30/21 10:47 Pulse Rate 78 06/30/21 16:43 Respiratory Rate 17 06/30/21 16:43 Blood Pressure 113/62 06/30/21 16:43 Pulse Oximetry 100 06/30/21 16:43 MDM - Neuro Symptoms/Deficit Medical Decision Making I went out and saw patient while she was in waiting room. I got history on patient while she was in waiting room. CT of head was normal but patient was still feeling some residual left arm weakness and lack of coordination in left arm as well. Patient appeared stable and vitals were stable. I went and talked with Dr. Taylor about patient case and he recommended ordering a CTA head and neck on patient. He wanted patient to get back into a room as soon as one is available and she could possibly be admitted for TIA. Lab Data : 06/30/21 14:40 06/30/21 14:[address] 06/30/21 10:53 IMPRESSION: 1. No acute intracranial hemorrhage or edema. 2. No focal area of sulcal effacement. 3. Mild bifrontal atrophy. Head/Neck CTA 06/30/21 14:23 IMPRESSION: 1. No significant carotid artery stenosis. 2. Mild plaque in the cervical carotid bifurcations and intracranial carotid arteries. 3. No aneurysms. Laboratory Results WBC 11.5 10^3/uL (4.0-10.0) H 06/30/21 14:40 RBC 4.67 10^6/uL (4.1-5.3) 06/30/21 14:40 Hgb 14.2 g/dL (11.5-15.3) 06/30/21 14:40 Hct 41.5 % (37.0-47.0) 06/30/21 14:40 MCV 88.9 fl (81-99) 06/30/21 14:40 MCH 30.4 pg (28.0-34.0) 06/30/21 14:40 MCHC 34.2 g/dL (30.0-36.0) 06/30/21 14:40 RDW 12.2 % (12.1-15.1) 06/30/21 14:40 Plt Count 252 10^3/cmm (130-400) 06/30/21 14:40 MPV 10.0 fL (7.4-10.4) 06/30/21 14:40 Lymph % (Auto) Not Reportable 06/30/21 14:40 [place] % (Auto) Not Reportable 06/30/21 14:40 Lymph # (Auto) Not Reportable 06/30/21 14:40 [place] # (Auto) Not Reportable 06/30/21 14:40 Total Counted 100 (0-100) 06/30/21 14:40 Atypical Lymphs % 23.0 % (0-5) H 06/30/21 14:40 Absolute Neutrophils 3.3 10^3/cmm (1.4-6.5) 06/30/21 14:40 Segmented Neutrophils 29 % 06/30/21 14:40 Abs Segm Neuts (Man) 3.3 10/cmm (1.6-7.1) 06/30/21 14:40 Band Neutrophils 0.0 % 06/30/21 14:40 Abs Band Neuts (Man) 0.0 10^3/cmm (0.0-1.2) 06/30/21 14:40 Absolute Lymphocytes 7.6 10^3/cmm (1.2-3.4) H 06/30/21 14:40 Lymphocytes (Manual) 43 % 06/30/21 14:40 Monocytes (Manual) 4.0 % 06/30/21 14:40 Absolute Monocytes 0.5 10^3/cmm (0.1-0.6) 06/30/21 14:40 Eosinophils (Manual) 0 % 06/30/21 14:40 Absolute Eosinophils 0.0 10^3/cmm (0.0-0.7) 06/30/21 14:40 Basophils (Manual) 0.0 % 06/30/21 14:40 Absolute Basophils 0.0 10^3/cmm (0.0-0.2) 06/30/21 14:40 Platelet Estimate Normal (Normal) 06/30/21 14:40 Sodium 139 mmol/L (136-145) 06/30/21 14:40 Potassium 4.0 mmol/L (3.5-5.1) 06/30/21 14:40 Chloride 102 mmol/L (98-107) 06/30/21 14:40 Carbon Dioxide 22 mmol/L (22-29) 06/30/21 14:40 Anion Gap 19.0 (5-19) 06/30/21 14:40 BUN 20 mg/dL (6-20) 06/30/21 14:40 Creatinine 0.7 mg/dL (0.5-0.9) 06/30/21 14:40 GFR Calculation 85.9 mL/min (90-130) L 06/30/21 14:40 Glucose 94 mg/dL (65-115) 06/30/21 14:40 Calculated Osmolality 290 mOsm/kg (285-295) 06/30/21 14:40 Calcium 10.1 mg/dL (8.5-10.5) 06/30/21 14:40 Total Bilirubin 0.7 mg/dL (0.15-1.2) 06/30/21 14:40 AST 37 U/L (0-32) H 06/30/21 14:40 ALT 61 U/L (0-33) H 06/30/21 14:40 Alkaline Phosphatase 61 IU/L (35-105) 06/30/21 14:40 Total Protein 7.2 g/dL (6.6-8.7) 06/30/21 14:40 Albumin 4.9 g/dL (3.5-5.2) 06/30/21 14:40 Globulin 2.3 g/dL (1.3-4.6) 06/30/21 14:40 Discharge Plan Discharge Patient Disposition: Home Clinical Impression: Transient cerebral ischemia Condition: Stable Prescriptions: New aspirin 81 mg tablet,delayed release (DR/EC) 81 mg PO DAILY Qty: 30 0RF Lipitor 40 mg tablet 40 mg PO DAILY Qty: 30 0RF Discharge Orders: Discharge ED (Routine); Ordered 06/30/21 Ordered By: Mac Thompson Discharge Diet: Usual diet Discharge Activity: Increase activity as tolerated Patient Instructions: Opioid Safety Coding Level of Care Code ED Dental Scheduling Coordinator for Chg Fwd Exam Comprehensive Documented by User: Mac Thompson DO 07/05/21 08:34 HPI - Neuro Symptoms/Deficit General: Chief Complaint: Neuro Symptoms/Deficit Stated Complaint: Possible Stroke on 06/29 Time Seen by Provider: 06/30/21 15:32 History of Present Illness: Patient is a 56-year-old female who comes to the ED with stroke like symptoms. Patient says her symptoms started around 11 AM yesterday June 29. Symptoms described as left arm weakness and trouble functioning and moving left arm. Patient describes having trouble grabbing and holding her wallet. She went and laid down after symptoms started yesterday and took a nap. She woke up and her symptoms had improved throughout the rest of the day yesterday. She still having some residual weakness and lack of coordination in left arm, but it is better than it was yesterday. Denies any other symptoms. She has never had any episode like this before in the past. Denies any headache. 56-year-old female presents emergency room concerned she may have had a stroke. Yesterday while at work she felt some weakness in her left hand a difficult time grasping small objects for period of time it resolved spontaneously. She was seen by her primary care doctor and referred to the ER today. She is not previously a stroke in the past she is diabetic no known history of coronary disease although her symptoms have resolved at this point. Onset (ago): day(s) (1) Location: left arm History of same: No Severity: mild Quality: weak, numb and tingling Relieving factors: time Exacerbating factors: none Associated symptoms: Reports tingling and weakness; Deny chest pain, cough, fevers/chills, anorexia, malaise, nausea, seizures, short of breath or vomiting Review of Systems Const: Denies: fever(s), chills, body aches, change in appetite, fatigue or malaise ENMT: Denies: throat pain, ear or mastoid pain, nasal discharge or nasal congestion Card: Denies: chest pain, edema, dyspnea on exertion or orthopnea Resp: Denies: dyspnea, productive cough or non-productive cough GI: Denies: abdominal pain, nausea, vomiting, hematemesis, coffee ground emesis, diarrhea, constipation, bloating, hematochezia or melena : Denies: flank pain, difficulty voiding, dysuria, urinary frequency or urinary urgency Skin/Breast: Denies: rash or pruritus PFSH ED PFSH: Medical History (Updated 07/05/21 @ 08:32 by Mac Thompson DO) No significant past medical history Obesity Surgical History (Updated 07/05/21 @ 08:32 by Mac Thompson DO) No significant past surgical history Social History (Updated 07/05/21 @ 08:32 by Mac Thompson DO) Smoking and tobacco status: never smoked Alcohol intake: never NIH stroke score NIHSS: Level Of Consciousness - 1a: 0 Level Of Consciousness Questions - 1b: Both Correct Level Of Consciousness Commands - 1c: Both Correct Best Gaze - 2: Normal Visual Feliciano - 3: No Visual Loss Facial Palsy - 4: Normal Motor Arm Right - 5: No Drift Motor Arm Left - 5: No Drift Motor Leg Right - 6: No Drift Motor Leg Left - 6: No Drift Limb Ataxia - 7: Absent Sensory - 8: Normal Best Language - 9: No Aphasia Dysarthia - 10: Normal Extinction And Inattention - 11: 0 Score: Total Score: 0 Physical Exam Const: GENERAL APPEARANCE: cooperative and comfortable ORIENTATION/CONSCIOUSNESS: Yes awake, Yes oriented to person, Yes oriented to place and Yes oriented to time HENMT: COMMON NORMALS: normocephalic, atraumatic, hearing grossly normal bilaterally, external ears normal, EAC's normal, TM's normal bilaterally, Normal nasal mucous membranes and turbinates present, moist oral mucous membranes and oropharynx normal HEAD & SCALP: normocephalic and atraumatic NOSE: Normal nasal mucous membranes and turbinates present EXTERNAL EAR: Yes external ears normal EXTERNAL AUDITORY CANAL: EAC's normal TYMPANIC MEMBRANE: TM's normal bilaterally Eye: COMMON NORMALS: Equal, round and reactive pupils present, EOMs intact bilaterally, conjunctivae normal and no scleral icterus CONJUNCTIVA: Yes conjunctivae normal PUPIL: Yes Equal, round and reactive pupils present Neck/C-Spine: COMMON NORMALS: no JVD Resp: COMMON NORMALS: normal respiratory effort, No retractions, No use of accessory muscles and clear to auscultation bilaterally AUSCULTATION: clear to auscultation bilaterally Cardio: COMMON NORMALS: no JVD, regular rate, regular rhythm and No murmurs present (Cardio) RATE: regular rate RHYTHM: regular rhythm GI: COMMON NORMALS: Soft to palpation and No hepatosplenomegaly present AUSCULTATION: Yes normoactive bowel sounds PALPATION: Yes Soft to palpation, No Tenderness to palpation present (GI), No Guarding due to palpation present (GI) and Yes No hepatosplenomegaly present Extremity: COMMON NORMALS: normal to inspection, capillary refill normal, no clubbing, cyanosis or edema, no calf tenderness and no pedal edema Neuro: SENSORIUM/ORIENTATION: Yes oriented to person, Yes oriented to place and Yes oriented to time Skin: COMMON NORMALS: no rashes or lesions noted GENERAL SKIN EXAM: no rashes or lesions noted Course Vital Signs: Vital signs: Vital Signs Temperature 98.4 F 06/30/21 10:47 Pulse Rate 78 06/30/21 16:43 Respiratory Rate 17 06/30/21 16:43 Blood Pressure 113/62 06/30/21 16:43 Pulse Oximetry 100 06/30/21 16:43 MDM - Neuro Symptoms/Deficit Medical Decision Making I went out and saw patient while she was in waiting room. I got history on patient while she was in waiting room. CT of head was normal but patient was still feeling some residual left arm weakness and lack of coordination in left arm as well. Patient appeared stable and vitals were stable. I went and talked with Dr. Taylor about patient case and he recommended ordering a CTA head and neck on patient. He wanted patient to get back into a room as soon as one is available and she could possibly be admitted for TIA. Patient asymptomatic this time stroke score is 0. CTA of the head and neck as well as initial CT are negative. We will go ahead and start the patient on aspirin and Lipitor. Have her follow-up with neurology. She has had similar episodes in the past. We did call over to Dr. Mireles's office. Lab Data : 06/30/21 14:40 06/30/21 14:[address] 06/30/21 10:53 IMPRESSION: 1. No acute intracranial hemorrhage or edema. 2. No focal area of sulcal effacement. 3. Mild bifrontal atrophy. Head/Neck CTA 06/30/21 14:23 IMPRESSION: 1. No significant carotid artery stenosis. 2. Mild plaque in the cervical carotid bifurcations and intracranial carotid arteries. 3. No aneurysms. Laboratory Results WBC 11.5 10^3/uL (4.0-10.0) H 06/30/21 14:40 RBC 4.67 10^6/uL (4.1-5.3) 06/30/21 14:40 Hgb 14.2 g/dL (11.5-15.3) 06/30/21 14:40 Hct 41.5 % (37.0-47.0) 06/30/21 14:40 MCV 88.9 fl (81-99) 06/30/21 14:40 MCH 30.4 pg (28.0-34.0) 06/30/21 14:40 MCHC 34.2 g/dL (30.0-36.0) 06/30/21 14:40 RDW 12.2 % (12.1-15.1) 06/30/21 14:40 Plt Count 252 10^3/cmm (130-400) 06/30/21 14:40 MPV 10.0 fL (7.4-10.4) 06/30/21 14:40 Lymph % (Auto) Not Reportable 06/30/21 14:40 [place] % (Auto) Not Reportable 06/30/21 14:40 Lymph # (Auto) Not Reportable 06/30/21 14:40 [place] # (Auto) Not Reportable 06/30/21 14:40 Total Counted 100 (0-100) 06/30/21 14:40 Atypical Lymphs % 23.0 % (0-5) H 06/30/21 14:40 Absolute Neutrophils 3.3 10^3/cmm (1.4-6.5) 06/30/21 14:40 Segmented Neutrophils 29 % 06/30/21 14:40 Abs Segm Neuts (Man) 3.3 10/cmm (1.6-7.1) 06/30/21 14:40 Band Neutrophils 0.0 % 06/30/21 14:40 Abs Band Neuts (Man) 0.0 10^3/cmm (0.0-1.2) 06/30/21 14:40 Absolute Lymphocytes 7.6 10^3/cmm (1.2-3.4) H 06/30/21 14:40 Lymphocytes (Manual) 43 % 06/30/21 14:40 Monocytes (Manual) 4.0 % 06/30/21 14:40 Absolute Monocytes 0.5 10^3/cmm (0.1-0.6) 06/30/21 14:40 Eosinophils (Manual) 0 % 06/30/21 14:40 Absolute Eosinophils 0.0 10^3/cmm (0.0-0.7) 06/30/21 14:40 Basophils (Manual) 0.0 % 06/30/21 14:40 Absolute Basophils 0.0 10^3/cmm (0.0-0.2) 06/30/21 14:40 Platelet Estimate Normal (Normal) 06/30/21 14:40 Sodium 139 mmol/L (136-145) 06/30/21 14:40 Potassium 4.0 mmol/L (3.5-5.1) 06/30/21 14:40 Chloride 102 mmol/L (98-107) 06/30/21 14:40 Carbon Dioxide 22 mmol/L (22-29) 06/30/21 14:40 Anion Gap 19.0 (5-19) 06/30/21 14:40 BUN 20 mg/dL (6-20) 06/30/21 14:40 Creatinine 0.7 mg/dL (0.5-0.9) 06/30/21 14:40 GFR Calculation 85.9 mL/min (90-130) L 06/30/21 14:40 Glucose 94 mg/dL (65-115) 06/30/21 14:40 Calculated Osmolality 290 mOsm/kg (285-295) 06/30/21 14:40 Calcium 10.1 mg/dL (8.5-10.5) 06/30/21 14:40 Total Bilirubin 0.7 mg/dL (0.15-1.2) 06/30/21 14:40 AST 37 U/L (0-32) H 06/30/21 14:40 ALT 61 U/L (0-33) H 06/30/21 14:40 Alkaline Phosphatase 61 IU/L (35-105) 06/30/21 14:40 Total Protein 7.2 g/dL (6.6-8.7) 06/30/21 14:40 Albumin 4.9 g/dL (3.5-5.2) 06/30/21 14:40 Globulin 2.3 g/dL (1.3-4.6) 06/30/21 14:40 Discharge Plan Discharge Patient Disposition: Home Clinical Impression: Transient cerebral ischemia Condition: Stable Prescriptions: New aspirin 81 mg tablet,delayed release (DR/EC) 81 mg PO DAILY Qty: 30 0RF Lipitor 40 mg tablet 40 mg PO DAILY Qty: 30 0RF Discharge Orders: Discharge ED (Routine); Ordered 06/30/21 Ordered By: Mac Thompson Discharge Diet: Usual diet Discharge Activity: Increase activity as tolerated Patient Instructions: Opioid Safety Coding Level of Care Code ED Dental Scheduling Coordinator for Kishor Fwd Exam Comprehensive
[2021-06-30 14:50] LABS: Hematocrit 41.5 % (37.0-47.0); Hemoglobin 14.2 g/dL (11.5-15.3); Mean Corpuscular HGB Conc 34.2 g/dL (30.0-36.0); Mean Corpuscular Hemoglobin 30.4 pg (28.0-34.0); Mean Corpuscular Volume 88.9 fl (81-99); Platelet Count 252 10^3/cmm (130-400); Red Blood Count 4.67 10^6/uL (4.1-5.3); Red Cell Distribution Width 12.2 % (12.1-15.1); White Blood Count 11.5 10^3/uL (4.0-10.0)
[2021-06-30 15:25] LABS: Alanine Aminotransferase 61 U/L (0-33); Albumin Level 4.9 g/dL (3.5-5.2); Alkaline Phosphatase 61 IU/L (35-105); Aspartate Amino Transferase 37 U/L (0-32); Blood Urea Nitrogen 20 mg/dL (6-20); Calcium 10.1 mg/dL (8.5-10.5); Carbon Dioxide 22 mmol/L (22-29); Chloride 102 mmol/L (98-107); Globulin 2.3 g/dL (1.3-4.6); Glomerular Filtration Rate 85.9 mL/min (90-130); Glucose 94 mg/dL (65-115); Osmolality Calculated 290 mOsm/kg (285-295); Sodium 139 mmol/L (136-145); Total Bilirubin 0.7 mg/dL (0.15-1.2); Total Protein 7.2 g/dL (6.6-8.7)
[2021-06-30 15:36] LABS: Slide Review Slide Review Perform
[2021-06-30 15:38] LABS: Absolute Neutrophil 3.3 10^3/cmm (1.4-6.5); Absolute Segmented Neutrophil 3.3 10/cmm (1.6-7.1); Eosinophils 0 %; Lymphocytes 43 %; Lymphocytes Absolute 7.6 10^3/cmm (1.2-3.4); Monocytes Absolute 0.5 10^3/cmm (0.1-0.6); Platelet Estimate Normal (Normal); Segmented Neutrophils 29 %; Total Cells Counted 100 (0-100)
[2021-06-30 16:43] VITALS: BP 113/62; PULSE 78; RESP 17; O2SAT 100
--- NOTE | 2021-07-06 14:01 | DCPLANNER ---
Addendum entered by Shelly Bradley 07/15/21 19:24: Hazel confirmed that centralized scheduling did receive order for MRI, no appointment scheduled at this time. Patient did have an appointment scheduled for 07.05.[address] Mireles - patient did attend appointment. Original Note: field operations farm manager had message to schedule a followup appointment for patient with Dr. Mireles. field operations farm manager emailed patients information to the neurology clinic for review. Patients information will be printed and reviewed. Clinic will call patient with appointment information. field operations farm manager also had message to schedule an out patient MRI for patient. field operations farm manager faxed signed order to centralized scheduling, who will call patient with appointment information.
== END 2021-06-30 16:45 | disposition home or self-care (01) ==
PROVIDERS: Physician Assistant; Emergency Provider Family Medicine
DX: G45.9 Transient cerebral ischemic attack, unspecified (principal)
CPT/HCPCS: 70450; 70496; 70498; 80053; 85007; 85025; 99283; Q9967

== ENCOUNTER → 2021-08-25 09:00 | Outpatient (BNVA) | payer BC, SELFPAY | PROVIDERS: PCP Nurse Practitioner Family; Visit Provider Anesthesiology Pain Medicine | DX: M54.16 Radiculopathy, lumbar region (principal); G89.29 Other chronic pain; E11.9 Type 2 diabetes mellitus without complications | CPT/HCPCS: 36416; 82962 ==

== ENCOUNTER 2021-09-01 08:02 | Outpatient (CLI) | payer BC, SELFPAY ==
--- NOTE | 2021-09-01 08:15 | MR_ITS ---
WS: [id number] MRI HEAD WITHOUT CONTRAST TECHNIQUE: Sagittal T1, T2 axial, T2 axial FLAIR, axial and coronal T1 images, axial susceptibility w eighted imaging, axial diffusion weighted images, and coronal T2 images were obtained. Patient refuse d IV for contrast CLINICAL INFORMATION: TIA COMPARISON: MRI March 26, 2020 FINDINGS: No evidence of restricted diffusion to suggest acute ischemia. Ventricular system and basal cisterns are patent. Mild small vessel changes. Moderate parenchymal volume loss. Normal posterior fossa. Norm al vascular flow voids at the skull base. No extra-axial fluid collections. Mild mucosal thickening i n the ethmoid air cells. Mastoid air cells are well aerated. Chronic lacunar infarcts LEFT centrum se miovale posteriorly. Tiny chronic lacunar infarct RIGHT caudate. No hemosiderin on the susceptibly weighted images. Normal optic chiasm and pituitary infundibulum. Mi ld symmetric atrophy temporal lobes and hippocampal formations. Normal cavernous sinuses and Meckel's cave. MR/MR head wo con* [id number] IMPRESSION: 1. No evidence of restricted diffusion to suggest acute ischemia. 2. Mild small vessel changes with moderate parenchymal volume loss. 3. Chronic lacunar infarcts LEFT posterior centrum semiovale and RIGHT caudate . 4. Mild symmetric atrophy temporal lobes and hippocampal formations. 5. No hemosiderin on susceptibly weighted images. 6. Mild mucosal thickening in the paranasal sinuses. 7. Overall no significant interval changes compared to March 26, 2020
== END 2021-09-01 08:03 | disposition home or self-care (01) ==
PROVIDERS: PCP Nurse Practitioner Family; Visit Provider Specialist
DX: G45.9 Transient cerebral ischemic attack, unspecified (principal); I63.81 Other cerebral infarction due to occlusion or stenosis of small artery; G31.9 Degenerative disease of nervous system, unspecified
CPT/HCPCS: 70551

== ENCOUNTER → 2021-10-21 09:12 | Outpatient (BNVA) | payer BC, SELFPAY | PROVIDERS: PCP Nurse Practitioner Family; Visit Provider Anesthesiology Pain Medicine | DX: M25.552 Pain in left hip (principal); M54.9 Dorsalgia, unspecified; G89.29 Other chronic pain; M48.062 Spinal stenosis, lumbar region with neurogenic claudication; M47.816 Spondylosis without myelopathy or radiculopathy, lumbar region; M54.16 Radiculopathy, lumbar region | CPT/HCPCS: 73502 ==

== ENCOUNTER → 2021-12-08 00:01 | Outpatient (BNVA) | payer BC, SELFPAY | PROVIDERS: PCP Nurse Practitioner Family; Visit Provider Anesthesiology Pain Medicine | DX: G89.29 Other chronic pain; M54.9 Dorsalgia, unspecified; E11.9 Type 2 diabetes mellitus without complications; M16.12 Unilateral primary osteoarthritis, left hip; Z79.899 Other long term (current) drug therapy | CPT/HCPCS: 36416; 77002; 82962 ==

== ENCOUNTER 2022-01-25 11:30 | Outpatient (CLI) | payer BC, SELFPAY ==
--- NOTE | 2022-01-25 11:38 | XRR_ITS ---
PROCEDURE INFORMATION: Exam: XR Right Hip Exam date and time: 01/25/2022 11:57 AM Age: 56 years old Clinical indication: Right hip; Patient HX: Pre injections next week. RT hip pain, spinal degenerative disc disease has led to this; Additional info: M25.551 - pain in right hip TECHNIQUE: Imaging protocol: Radiologic exam of the Right hip. Views: 1 view hip with pelvis when performed. COMPARISON: CT lumbar spine w con [id number] 12/31/2020 10:05 AM FINDINGS: Bones/joints: Unremarkable. No acute fracture. Soft tissues: Unremarkable. XR/XR hip RT 2-3V wo/w pel* [id number] IMPRESSION: No acute findings.
== END 2022-01-25 11:31 | disposition home or self-care (01) ==
LOC: RAD 11:34
PROVIDERS: PCP Nurse Practitioner Family; Visit Provider Anesthesiology Pain Medicine
DX: M25.551 Pain in right hip (principal)
CPT/HCPCS: 73502

== ENCOUNTER → 2022-02-03 14:35 | Outpatient (BNVA) | payer BC, SELFPAY | PROVIDERS: PCP Nurse Practitioner Family; Visit Provider Anesthesiology Pain Medicine | DX: M16.9 Osteoarthritis of hip, unspecified (principal); M54.9 Dorsalgia, unspecified; G89.29 Other chronic pain | CPT/HCPCS: 77002 ==

== ENCOUNTER → 2022-05-03 13:10 | Outpatient (BNVA) | payer BC, SELFPAY | PROVIDERS: PCP Nurse Practitioner Family; Visit Provider Anesthesiology Pain Medicine | DX: M16.9 Osteoarthritis of hip, unspecified (principal); G89.29 Other chronic pain | CPT/HCPCS: 36416; 77002; 82962 ==

== ENCOUNTER → 2022-08-25 10:10 | Outpatient (BNVA) | payer OTHER, SELFPAY | PROVIDERS: PCP Nurse Practitioner Family; Visit Provider Anesthesiology Pain Medicine | DX: M54.16 Radiculopathy, lumbar region (principal); M47.816 Spondylosis without myelopathy or radiculopathy, lumbar region; M54.9 Dorsalgia, unspecified; G89.29 Other chronic pain; M48.062 Spinal stenosis, lumbar region with neurogenic claudication | CPT/HCPCS: 72110 ==

== ENCOUNTER 2022-09-03 07:03 | Outpatient (CLI) | payer OTHER, SELFPAY ==
--- NOTE | 2022-09-03 | MR_ITS ---
WS: [id number] MRI LUMBAR SPINE NONCONTRAST TECHNIQUE: Sagittal T1, T2 and STIR imaging. Axial T1 and T2 imaging. CLINICAL INFORMATION: CHRONIC BACK PAIN COMPARISON: CT lumbar December 31, 2020 FINDINGS: Mild lumbar curve. No acute compression. Degenerative disc disease worse at L3-L4 and L4-L5. Disc spa ce narrowing L4-L5 has significantly progressed compared to December 31, 2020. Endplate edema at L4-L5 likely degenerative. Discitis is less likely consideration L1-L2: Normal. L2-L3: Mild facet arthropathy. Spinal canal and foramen are patent. L3-L4: Mild disc bulging with osteophytic ridging. Mild central canal stenosis. Impingement on the tr aversing LEFT L4 nerve root. Mild bilateral foraminal narrowing. Mild facet arthropathy. L4-L5: Disc osteophyte complex with LEFT pericentral protrusion. Impingement LEFT subarticular recess and traversing LEFT L5 nerve root. This is new compared to previous. Moderate to severe central sandhya l stenosis at this level. Severe LEFT and mild RIGHT foraminal narrowing. Moderate facet arthropathy. L5-S1: Mild disc bulging with osteophytic ridging. Moderate bilateral foraminal narrowing LEFT greate r than RIGHT. Moderate facet arthropathy. Visualized pelvic bony structures: Normal. Paravertebral soft tissues: Normal. MR/MR lumbar spine wo con* [id number] IMPRESSION: 1. Mild lumbar curve. Advanced disc space narrowing L4-L5 with endplate edema has significantly progressed compared to 2020 with disc osteophyte complex. LEF T pericentral protrusion impinges the LEFT subarticular recess with moderate to severe central canal stenosis. 2. Endplate edema L4-L5 likely degenerative. Discitis is less likely considera tion. Recommend correlation with infectious symptoms. 3. Moderate to severe LEFT L4-L5 foraminal narrowing. 4. Mild central canal stenosis L3-L4 with impingement on traversing LEFT L4 ne rve root in the subarticular recess. Mild bilateral L3-L4 foraminal narrowing. 5. Eccentric disc bulge L5-S1 with moderate bilateral foraminal narrowing. 6. Central disc osteophyte protrusions in the cervical spine family law mediator imaging at C5-C6 and C6-C7 with mild to moderate central canal stenosis at C5-C6. 7. Small central protrusions in the thoracic spine at T7-T8 and T8-T9.
== END 2022-09-03 07:04 | disposition home or self-care (01) ==
PROVIDERS: PCP Nurse Practitioner Family; Visit Provider Anesthesiology Pain Medicine
DX: M54.9 Dorsalgia, unspecified (principal); G89.29 Other chronic pain; M48.062 Spinal stenosis, lumbar region with neurogenic claudication; M47.26 Other spondylosis with radiculopathy, lumbar region
CPT/HCPCS: 72148

== ENCOUNTER → 2022-10-27 15:37 | Outpatient (BNVA) | payer OTHER, SELFPAY | PROVIDERS: PCP Nurse Practitioner Family; Visit Provider Orthopaedic Surgery | DX: G89.29 Other chronic pain; Z01.818 Encounter for other preprocedural examination; M54.9 Dorsalgia, unspecified | CPT/HCPCS: 36415; 80053; 81001; 83036; 85025 ==

== ENCOUNTER 2022-11-23 16:21 | Inpatient (IN) | payer OTHER, SELFPAY ==
[2022-11-21 08:18] VITALS: BMI 28.0
[2022-11-23] VITALS (14 sets, daily range): BP systolic 104–163; BP diastolic 74–102; PULSE 65–110; RESP 16–19; TEMP 36–37; O2SAT 94–100
--- NOTE | 2022-11-23 | XR_ITS ---
WS: [id number] XR lumbar spine 2-3V* [id number] REASON FOR EXAM: OR PIC. L3 to pelvis fusion FINDINGS: Posterior decompression with pedicle screw placement at L2-S1. Oblique iliac screws placed at S2. Int erconnecting rods L2-S2. Interbody fusion devices at L5-S1 and L4-L5. Surgical appliances are intact and in proper position and alignment. XR/XR lumbar spine 2-3V* [id number] IMPRESSION: Posterior lumbar fusion as above.
[2022-11-23 10:42] LABS: Glucose Point of Care 147 mg/dL (70-110)
--- NOTE | 2022-11-23 11:00 | W.PM.OPSUD ---
Surgery/Procedure H&P Update DATE OF PROCEDURE: November 23, 2022 DATE H&P PERFORMED: 11/16/22 H&P UPDATE INFORMATION: I have reviewed H&P completed within last 30 days, I have examined patient prior to procedure and No changes to prior documentation PREOP DIAGNOSIS: DDD lumbar spine, lumbar stenosis with neurogenic claudication PLANNED PROCEDURE: Operation Date: 11/23/22 12:25 Proposed Procedures p Posterior Lumbar Interbody Fusion(Not Applicable) - Hieu Martinez DO s L2 to the pelvis fusion with PLIF cage at L5-S1. And open SI joint fusions bilaterally.ecompression:[id number],19865,[id number],58029,03365,83096 X 2,53133,M54.16,M48.062(Not Applicable) - Hieu Martinez DO
[2022-11-23] MEDS: scopolamine 1.5 Patch 1 PATCH TRANSDERMA (11:03)
[2022-11-23] MEDS: sodium chloride 0.9% 1,000 ML 30 ML IV (11:03)
[2022-11-23] MEDS: ceFAZolin 2,000 MG in sodium chloride 0.9% (plus) 50 ML 100 MG IV ×2 (11:39→20:11)
--- NOTE | 2022-11-23 12:22 | ANES.PREANE2 ---
Pre-Anesthetic Assessment Height/Weight: Height 1.6 m Weight 71.668 kg BP O2 Del Method 104/74 Room Air 11/23/22 11:03 11/23/22 10:36 Preop Diagnosis: DDD lumbar spine, lumbar stenosis with neurogenic claudication Operation Date: 11/23/22 12:25 Proposed Procedures p Posterior Lumbar Interbody Fusion(Not Applicable) - Hieu Martinez DO s L2 to the pelvis fusion with PLIF cage at L5-S1. And open SI joint fusions bilaterally.ecompression:[id number],56662,63576,38501,96442,93830,18857 X 2,83361,M54.16,M48.062(Not Applicable) - Hieu Martinez DO Familial anesthetic complications: none Was Beta Taryn taken within 24 hours: Yes Was Clonidine taken within 24 hours: N/A Last intake: Intake Last Liquid Date 11/22/22 Last Liquid Time 23:55 Last Solid Date 11/22/22 Last Solid Time 18:30 Social Tobacco (Smokes lyn) and No alcohol Exam alert, oriented x 3 and regular rate & rhythm Airway Submandibular: within normal limits Cervical ROM: within normal limits Mallampati: Class II Dentition: false (upper) Pulmonary Chronic Obstructive Pulmonary Disease CV/HEM Arrythmia and Hypertension GI Gastroesophageal Reflux Disease Metabolic Hyperlipidemia [facility] [place] Lower Back Pain and Osteoarthritis/DJD Neuropsych Anxiety, Depression and Seizure chronic pain Anesthetic Plan ASA status: 3 Anesthesia: General Other: Discussed a.line and transfusion Medications/Allergies Home Medications Medication Instructions Recorded Confirmed Last Taken Type metoprolol tartrate 50 mg tablet 50 mg PO QPM 06/26/20 11/21/22 11/22/22 History rosuvastatin 10 mg tablet 10 mg PO DAILY 09/23/21 11/21/22 11/19/22 History acetaminophen 300 mg-codeine 30 mg 1 tab PO BID PRN Pain 12/30/21 11/23/22 11/21/22 History tablet MARIJUANA PO 07/13/22 11/16/22 11/22/22 History Levemir Flexpen 34 units SUBCUT QAM 11/16/22 11/21/22 11/22/22 History fluconazole 150 mg tablet 150 mg PO DAILY #1 tab 11/16/22 11/21/22 Unknown Rx multivitamin 1 tab PO DAILY 11/16/22 11/23/22 Unknown History olmesartan 20 mg tablet 40 mg PO DAILY 11/16/22 11/21/22 11/22/22 History omeprazole 20 mg tablet,delayed 20 mg PO DAILY 11/16/22 11/21/22 11/21/22 History release Intraoperative Neurophysiological #1 ea 11/21/22 11/21/22 Unknown Rx Testing semaglutide 0.25 mg or 0.5 mg (2 mg SUBCUT 11/21/22 10/26/22 History mg/3 mL) subcutaneous pen injector (Ozempic) Allergies Allergy/AdvReac Type Severity Reaction Status Date / Time naproxen Allergy abdominal Verified 11/16/22 09:41 pain Current Medications Generic Name Dose Route Start Last Admin Trade Name Sean PRN Reason Stop Dose Admin Sodium Chloride 1,000 mls @ 30 mls/hr 11/23/22 10:15 11/23/22 11:03 Sodium Chloride 0.9% IV 11/24/22 10:14 30 mls/hr .Q24H LYNETTE Administration PFSH Anesthesia Medical History Diabetes Hyperlipidemia Hypertension No significant past medical history Obesity Seizures Status post placement of implantable loop recorder Syncope Worsening angina Surgical History No significant past surgical history Family History Grandmother Dementia Mother Diabetes Father Hyperlipidemia Denies family history of Cancer Social History Smoking and tobacco status: former smoker Quit status (tobacco): has quit using tobacco Second hand smoke exposure: Yes Alcohol intake: never Substance/Drug Use: current Substance/Drug use frequency: daily Caregiver/support person: Yes Lives independently: Yes Data Anesthesia Blood Bank 11/23/22 10:46 Blood Type A Positive Rho(D) Type Positive Antibody Screen Negative Cardiac Studies: Echocardiogram Ultrasound 03/26/20 Sestamibi Stress Test (Cardiology) 03/26/20 Cardiac Event Monitor 02/18/20
[2022-11-23] MEDS: vancomycin 1,000 MG SDV 1000 MG XX (13:34)
[2022-11-23] MEDS: lidocaine-epi 1% 20 mL INJ INJECTION (13:34)
[2022-11-23] MEDS: heparin, porcine 1,000 unit/mL INJ 10 mL 10000 UNIT IRRIGATION (13:35)
--- NOTE | 2022-11-23 16:19 | PM.OP ---
Operative Report Date of procedure: November 23, 2022 Pre-op diagnosis: Preop Diagnosis DDD lumbar spine, lumbar stenosis with neurogenic claudication Post-op diagnosis: same
--- NOTE | 2022-11-23 16:38 | ANE.PACU2 ---
Inpatient post-anesthesia follow up: Airway intact: Yes Vital signs: Temperature 97 F Pulse Rate 106 Respiratory Rate 16 Blood Pressure 133/96 Pulse Oximetry 96 Oxygen Delivery Me thod Room Air Oxygen Flow Rate 6 Fraction of Inspir ed Oxygen Hydration adequate: Yes Nausea and vomiting: No Pain level: 4 Mental status: Baseline
[2022-11-23] MEDS: ondansetron 2 mg/ML SDV 2 mL 4 MG IVP ×3 (16:45→19:59)
[2022-11-23 17:34] LABS: Glucose Point of Care 286 mg/dL (70-110)
[2022-11-23] MEDS: ketorolac 30 mg/mL INJ IVP (17:43)
[2022-11-23] MEDS: docusate sodium 100 mg Capsule PO (17:43)
[2022-11-23] MEDS: metoprolol tartrate 50 mg Tablet PO (17:43)
[2022-11-23] MEDS: sodium chloride 0.9% 1,000 ML 100 ML IV (17:43)
--- NOTE | 2022-11-23 18:15 | PC.NURSE ---
Kelvin, spouse stated patient only takes long acting lantus 34 units at night. Patient checks blood sugar at that time and usually around 120ish.
[2022-11-23] MEDS: morphine 4 mg/mL SDV 1 mL 2 MG IVP (19:57)
[2022-11-23 23:47] LABS: Glucose Point of Care 347 mg/dL (70-110)
[2022-11-24] VITALS (10 sets, daily range): BP systolic 112–169; BP diastolic 67–90; PULSE 67–80; RESP 15–20; TEMP 36.7–37; O2SAT 98–99
[2022-11-24] MEDS: ondansetron 2 mg/ML SDV 2 mL 4 MG IVP (02:11)
[2022-11-24] MEDS: ceFAZolin 2,000 MG in sodium chloride 0.9% (plus) 50 ML 100 MG IV ×2 (04:01→11:40)
[2022-11-24] MEDS: lactated ringers 1,000 ML 90 ML IV ×2 (04:30→17:39)
[2022-11-24] MEDS: insulin glargine 100 units/1 mL 34 UNIT SUBCUT (06:34)
[2022-11-24 06:36] LABS: Glucose Point of Care 307 mg/dL (70-110)
--- NOTE | 2022-11-24 07:08 | PM.PN ---
Subjective Subjective: POD 1 Patient resting well. Reports back pain states her legs have improved. Denies chest pain, shortness of breath, headaches. C/O N/V Vitals/I&O/Wt Last Vital Signs Temp 98.2 F 11/24/22 04:00 Pulse 77 11/24/22 06:00 Resp 16 11/24/22 04:00 BP 137/77 11/24/22 04:00 Pulse Ox 98 11/24/22 04:00 O2 Del Method Room Air 11/24/22 04:00 O2 Flow Rate 6 11/23/22 16:20 11/23/22 11/24/22 11/24/22 22:59 06:59 14:59 Intake Total 1861 / 1911 1050 / 2961 Output Total 1500 / 1500 600 / 2100 Balance 361 / 411 450 / 861 Physical Exam Narrative: Patient presents alert and oriented x3 with a good general appearance normal mood and affect. Normal coordination normal stability. Mild tenderness around the incisional site with the incision appear to be clean and dry with hemovac intact. No signs of erythema or drainage. No signs of infection. Patient denies any fevers or chills. 5/5 motor strength both lower extremities with negative straight leg raise bilaterally. Calves are supple no medial thigh tenderness. Pulses are 2+ at the dorsalis pedis and posterior tibial region. Good capillary refill throughout normal sensation light touch both lower extremities. Urinary Catheter Management: Galeana: Cath Placed During This Visit: yes Reason for Continuing Indwelling Catheter: Acute Urinary Retention or Obstruction Urinary Catheter Date of Insertion: 11/23/22 Urinary Catheter Time of Insertion: 12:20 A&P Assessment and plan (1) Status post lumbar spinal fusion: Physical therapy to work with mobilization. We will discontinue Galeana catheter after physical therapy evaluation. Encourage incentive spirometry. Continue Hemovac drain until tomorrow. Hopeful discharge home tomorrow. Patient is high risk of bleeding continue SCDs for DVT prophylaxis. Reglan 10 mg IV every 6 as needed nausea vomiting Attestations Medical Necessity Statement*: Hopeful discharge home tomorrow. Coding Level of Care Code Acute Code for Chg Fwd Diagnoses Status post lumbar spinal fusion Z98.1
[2022-11-24] MEDS: metoclopramide 5 mg/mL SDV 2 mL 10 MG IVP (07:37)
[2022-11-24] MEDS: morphine 4 mg/mL SDV 1 mL 2 MG IVP (09:21)
[2022-11-24] MEDS: losartan 50 mg Tablet 100 MG PO (10:17)
[2022-11-24] MEDS: atorvastatin 40 mg Tablet PO (10:18)
[2022-11-24] MEDS: fluconazole 100 mg Tablet 150 MG PO (10:18)
[2022-11-24] MEDS: docusate sodium 100 mg Capsule PO ×2 (10:19→17:39)
[2022-11-24] MEDS: multivitamin therapeutic Tablet 1 TAB PO (10:19)
[2022-11-24] MEDS: pantoprazole DR 40 mg Tablet PO (10:19)
[2022-11-24] MEDS: HYDROcodone-acetaminophen 5-325 mg Tablet PO ×3 (10:39→22:56)
[2022-11-24 11:19] LABS: Glucose Point of Care 253 mg/dL (70-110)
--- NOTE | 2022-11-24 12:32 | PC.CHAP ---
Pastoral Care Encounter/Spiritual Assessment Type of Contact [] Declined director of media visit [] Patient/Family/Request visit [] Outpatient visit [] Follow-up visit [] Physician referral [] Code/Alert [x] Routine visit [] Staff referral [] Actively dying [] Patient sleeping [] Family support [] [] Out of room [] Palliative care [] [x] Receiving care in room [] Pre-surgical visit [] Trauma [] Long length of stay [] ICU visit [] Other: Relational/Emotional Strength [x] Patient feels connected with others/family/visitors/staff [] Distress [] Loneliness/isolation [] Abandonment Spirituality of Patient [x] Person of Kelsey [] Attends Latter-Day of their Kelsey [x] Believes in Prayer [] Reads Bible or Presybeterian materials [] There are Spiritual issues to be addressed Contract Driver Interventions [x] Prayer [x] Active listening [x] Non-anxious presence [x] Spiritual/emotional support [] Crisis/trauma care [x] Spiritual counseling [] Bereavement support [] Provided bereavement packet [] Provided Bible/devotional materials [] Provided toy/stuffed animal, coloring book to patient or family member [] Provided Communion [] Anointing/Butler [] Salvation [] Completed spiritual assessment [] Other: Impact on Illness or Injury [] Angry [] Fearful [] Anxious [] Often cries [] Exhaustion [] Unable to work [] Unable to attend latter day [] Unable to walk/stand [] Unable to read [] Unable to drive [] Unable to eat/drink [] Unable to sleep [] Unable to be with family [] Patient intubated [] Other: Summary third surgery on back well need rehab has a goodattitude Time spent with patient 10 mins
[2022-11-24 17:18] LABS: Glucose Point of Care 189 mg/dL (70-110)
[2022-11-24] MEDS: metoprolol tartrate 50 mg Tablet PO (17:39)
[2022-11-24 21:13] LABS: Glucose Point of Care 203 mg/dL (70-110)
[2022-11-25] MEDS: ketorolac 30 mg/mL INJ IVP (02:45)
[2022-11-25 03:26] VITALS: BP 133/73; PULSE 74; RESP 16; TEMP 37.2; O2SAT 98
[2022-11-25] MEDS: lactated ringers 1,000 ML 90 ML IV (04:19)
[2022-11-25] MEDS: insulin glargine 100 units/1 mL 34 UNIT SUBCUT (05:41)
[2022-11-25 06:47] LABS: Glucose Point of Care 180 mg/dL (70-110)
[2022-11-25 06:47] LABS: Glucose Point of Care 193 mg/dL (70-110)
--- NOTE | 2022-11-25 06:51 | PM.PN ---
Subjective Subjective: POD 2 Patient resting comfortably. Reports mild back pain improvement of her leg pain. Denies headaches, shortness of breath, chest pain. Vitals/I&O/Wt Last Vital Signs Temp 99.0 F 11/25/22 03:26 Pulse 74 11/25/22 03:26 Resp 16 11/25/22 03:26 BP 133/73 11/25/22 03:26 Pulse Ox 98 11/25/22 03:26 O2 Del Method Room Air 11/25/22 03:26 O2 Flow Rate 6 11/23/22 16:20 11/24/22 11/24/22 11/25/22 14:59 22:59 06:59 Intake Total 50 / 50 1240 / 1290 1080 / 2370 Output Total 140 / 140 125 / 265 Balance 50 / 50 1100 / 1150 955 / 2105 Physical Exam Narrative: Patient presents alert and oriented x3 with a good general appearance normal mood and affect. Normal coordination normal stability. Mild tenderness around the incisional site with the incision appear to be clean and dry. No signs of erythema or drainage. No signs of infection. Patient denies any fevers or chills. 5/5 motor strength both lower extremities with negative straight leg raise bilaterally. Calves are supple no medial thigh tenderness. Pulses are 2+ at the dorsalis pedis and posterior tibial region. Good capillary refill throughout normal sensation light touch both lower extremities. Urinary Catheter Management: Galeana: Cath Placed During This Visit: yes, but has since been removed by the nurse Reason for Continuing Indwelling Catheter: Decision to DC Catheter Urinary Catheter Date of Insertion: 11/23/22 Urinary Catheter Time of Insertion: 12:20 Date Urinary Catheter Removed: 11/24/22 Time Urinary Catheter Discontinued: 10:37 A&P Assessment and plan (1) Status post lumbar spinal fusion: Discontinue Hemovac drain. Physical therapy to work with mobilization. Continue incentive spirometry for pulmonary toilet at home. High risk of bleeding so continue SCDs for mechanical DVT prophylaxis. We will have her follow-up in 1 week's time for wound check. Discussed at length restricting bending lifting and twisting activities. Continue walking program. Call the office if she is having problems. Attestations Medical Necessity Statement*: Discharge home later this morning after Hemovac drain discontinued. Coding Level of Care Code Acute Code for Chg Fwd Diagnoses Status post lumbar spinal fusion Z98.1
[2022-11-25 07:34] VITALS: BP 138/75; PULSE 72; RESP 18; TEMP 37.2; O2SAT 98
[2022-11-25 08:31] VITALS: BP 138/75
[2022-11-25] MEDS: pantoprazole DR 40 mg Tablet PO (08:31)
[2022-11-25] MEDS: fluconazole 100 mg Tablet 150 MG PO (08:31)
[2022-11-25] MEDS: multivitamin therapeutic Tablet 1 TAB PO (08:31)
[2022-11-25] MEDS: docusate sodium 100 mg Capsule PO (08:31)
[2022-11-25] MEDS: losartan 50 mg Tablet 100 MG PO (08:31)
--- NOTE | 2022-11-25 09:51 | P.OP_ITS ---
Operative Report Date of procedure: November 23, 2022 Pre-op diagnosis: Preop Diagnosis DDD lumbar spine, lumbar stenosis with neurogenic claudication Preop Diagnosis DDD lumbar spine, lumbar stenosis with neurogenic claudication Post-op diagnosis: same Procedure done: 1.? L5/S1 Interbody fusion with posterolateral fusion 2. L4/5 Interbody fusion with posterolateral fusion 3.? Instrumentation L2-S1 4.? Lumbo pelvic fixation 5.? Posterolateral fusion from L2-Pelvis 6. Cage at L5/S1 7. Cage at L4/5 8. Open SI joint fusion on the right 9. open SI joint fusion of the Left 10.? L3/4 laminecctomy with partial facetectomy 11. L4/5 Laminectomy with partial facetectomy 12. L5/S1 laminctommy with partial facetectomy 13. use of autograft from same incision 14. allograft 15. Bone marrow aspirate from right iliac crest 16. use of computer navigation stereotactic from spine Surgeon: Hieu Martinez Recruitment Manager: Tito Mehta Recruitment Manager: The surgical resident, Tito Mehta, PAC was needed for his expertise under the microscope. He was important and necessary throughout the procedure to complete in a safe and timely manner. He assisted with patient positioning prepping and draping tissue retraction suctioning of the operative field protection of the dural sac and tissue closure Estimated blood loss (mL): 400 Procedure: 1.? L5/S1 Interbody fusion with posterolateral fusion 2. L4/5 Interbody fusion with posterolateral fusion 3.? Instrumentation L2-S1 4.? Lumbo pelvic fixation 5.? Posterolateral fusion from L2-Pelvis 6. Cage at L5/S1 7. Cage at L4/5 8. Open SI joint fusion on the right 9. open SI joint fusion of the Left 10.? L3/4 laminecctomy with partial facetectomy 11. L4/5 Laminectomy with partial facetectomy 12. L5/S1 laminctommy with partial facetectomy 13. use of autograft from same incision 14. allograft 15. Bone marrow aspirate from right iliac crest 16. use of computer navigation stereotactic from spine Patient is brought to the operative suite.? After undergoing anesthesia, the patient had neuro monitoring attached.? Patient was then placed in the prone position on the Ernesto table.? All areas of impingement were well-padded.? Patient was then prepped and draped in the normal sterile fashion.? Skin incision was then made over the L3-sacrum.? Subperiosteal dissection was made out to the transverse processes bilaterally of L2 and L3 and L4 and L5 and out to the sacral ala's and dissecting out the sacroiliac joints.? The [email or web address] bone marrow aspirate kit was used to aspirate bone marrow aspirate from the right iliac crest.? This was done by using the sharp probe to open up the bone.? Aspiration was performed and then the blunt probe was then used to dissect down to through the bone tunnel.? An aspirating well drawn back a millimeter approximately 20 cc of bone marrow aspirate was used.? And mixed with the allograft and autograft bone that will be used. Extension was brought to placing the pins for the computer navigation fiducial.? This was done by placing 2 iliac crest pins in the right side.? These pins were later removed within the case.? Skin incision made in 2 pins were placed fiducial was attached to these 2 pins.? And then the C-arm was brought in and spun around the patient and the information from the C-arm was then loaded into the computer through the fiducials.? And later used to place the pedicle screws. The technique for placing the pedicle screws was to use a drill followed by the gearshift probe linked to computer navigation.? Followed by the ball probe to feel the superior inferior medial lateral ayers of the pedicles.? Then placement of the screws linked to computer navigation.? Was done at each pedicle.? Screws were placed at L2 bilaterally, L3 bilaterally and L4? bilaterally, L5 bilaterally and S1 bilaterally. Extension was brought to placing the iliac screws.? This was done by using the gearshift linked to computer navigation gearshift was placed just distal to the S1 foramen and lateral.? Was driven through the sacral ala across the iliosacral joint and into the iliac crest.? This was done bilaterally.? And then a 80 mm 9.5 mm iliac screw was placed. Next attention was brought to doing the open SI joint fusions on both the right and the left side.? This was done by identifying the SI joint scraping out the SI joint and packing it with bone graft as well as passing a wire across to the iliac joint that has bone graft capabilities the wire was then drilled and bone graft was packed into this hole and then the screw which is in sacroiliac screw was brought across the joint fusing the joint.? This was done on both the right and the left sides. Next attention was brought to performing the laminectomy of L3.? This was done using the high-speed bur Kerrisons and curettes.? Once the lamina was removed and then attention was brought to performing a partial facetectomy on the contralateral side.? This was done again using the high-speed bur curettes and Kerrisons.? The ligamentum flavum was taken down bilaterally from L3 to L4.? Attention was then brought to the facet on the ipsilateral side.? The facet was taken down.? The L4 nerve was decompressed as it passed around the L4 pedicle.? The laminectomy was done for purposes of decompressing the nerve as well as placement of the cage.? The L4 nerve was identified as it traversed through the L3/4 foramen.? Next attention was brought to performing the laminectomy of L4.? This was done using the high-speed bur Kerrisons and curettes.? Once the lamina was removed and then attention was brought to performing a partial facetectomy on the contralateral side.? This was done again using the high-speed bur curettes and Kerrisons.? The ligamentum flavum was taken down bilaterally from L4 to L5.? Att ention was then brought to the facet on the ipsilateral side.? The facet was taken down.? The L5 nerve was decompressed as it passed around the L5 pedicle.? The laminectomy was done for purposes of decompressing the nerve as well as placement of the cage.? The L4 nerve was identified as it traversed through the L4/5 foramen.? The thecal sac was identified and retracted. The L4/5 disc base was identified.? Using a knife the disc base was opened.? And then sequential siddharth were placed.? The first shaver was a 6 and the last shaver was a 7.? Using a pituitary and down going curette the endplates were scraped and disc material was removed from the space.? Once adequate decompression of the disc base was felt to be had.? Osteoamp sponge was packed into the anterior aspect of the disc base.? Then a size 7 cage from [email or web address] was placed after packing osteoamp into the cage.? While placing the cage the thecal sac and S1 nerve was protected.? C arm was used to ensure that the cages placed in the appropriate position. Next attention was brought to performing the laminectomy ofL5.? This was done using the high-speed bur Kerrisons and curettes.? Once the lamina was removed and then attention was brought to performing a partial facetectomy on the contralateral side.? This was done again using the high-speed bur curettes and Kerrisons.? The ligamentum flavum was taken down bilaterally from L5 to S1.? Attention was then brought to the facet on the ipsilateral side.? The facet was taken down.? The S1 nerve was decompressed as it passed around the s1 pedicle.? The laminectomy was done for purposes of decompressing the nerve as well as placement of the cage.? The L5 nerve was identified as it traversed through the L5/S1 foramen.? The thecal sac was identified and retracted.? The L5/S1 disc base was identified.? Using a knife the disc base was opened.? And then sequential siddharth were placed.? The first shaver was a 6 and the last shaver was a 9.? Using a pituitary and down going curette the endplates were scraped and disc material was removed from the space.? Once adequate decompression of the disc base was felt to be had.? Osteoamp sponge was packed into the anterior aspect of the disc base.? Then a size 9 cage from [email or web address] was placed after packing osteoamp into the cage.? While placing the cage the thecal sac and S1 nerve was protected.? C arm was used to ensure that the cages placed in the appropriate position. Attention was then brought to attaching the rods to the screws placed in the L2 bilaterally, L3 bilaterally, L4 bilaterally L5 bilaterally S1 bilaterally.? The jus was also connected to the screws in iliac providing the lumbopelvic aspect of the lumbopelvic fixation.? Caps were torqued into position. Locking the construct in place. Wound was copiously irrigated and then attention was brought to decorticating the facets and transverse processes laterally.? Bone that was taken down from the lamina was used along with osteoamp fibers and sponges were packed into the lateral gutters along the facet joints.? This was done bilaterally. Wound was then closed in a layered fashion starting with the thoracolumbar fascia.? 0-vicryl was used the sub cutaneous tissue was closed with 2-0 vicryl and skin with 4-0 monocryl.? Glue was then used to seal the skin and a steril dressing was applied.? Patient was then placed in the supine position. The endotracheal tube was removed and patient was transferred to the PACU in stable condition.
--- NOTE | 2022-11-25 10:57 | PC.NURSE ---
Patient ambulating in [address], hemavac removed with dressing placed, AAOx4, VSS, at bedside and discharge education reviewed with patient and spouse. Verbally acknowledges discharge plans and follow up care.
[2022-11-25 10:58] VITALS: BP 138/75; PULSE 85; RESP 18; TEMP 36.7; O2SAT 95
--- NOTE | 2022-11-28 13:46 | P.DS_ITS ---
Discharge Providers Date of Admission: 11/23/22 16:21 Date of Discharge: November 25, 2022 Attending Provider at Admission: Hieu Martinez DO Attending Provider at Discharge: Hieu Martinez DO Primary Care Provider: RADHA Wright Diagnoses at Discharge Discharge Diagnosis (1) Status post lumbar spinal fusion: Status: Acute Reason for Visit Reason for Visit: M54.16, M48.062 Physical Exam Urinary Catheter Management: Galeana: Cath Placed During This Visit: yes, but has since been removed by the nurse Reason for Continuing Indwelling Catheter: Decision to DC Catheter Urinary Catheter Date of Insertion: 11/23/22 Urinary Catheter Time of Insertion: 12:20 Date Urinary Catheter Removed: 11/24/22 Time Urinary Catheter Discontinued: 10:37 Discharge Data Studies Completed and Pending Completed Studies During Hospitalization Category Date Time Status XR lumbar spine 2-3V* [id number] Routine Exams 11/23/22 Completed Radiology Impressions Lumbar Spine X-Ray 11/23/22 00:00 IMPRESSION: Posterior lumbar fusion as above. Laboratory Results POC Glucose 180 mg/dL (70-110) H 11/25/22 06:45 Blood Type A Positive 11/23/22 10:46 Rho(D) Type Positive 11/23/22 10:46 Antibody Screen Negative 11/23/22 10:46 Vitals Last Vital Signs Temp 98.0 F 11/25/22 10:58 Pulse 85 11/25/22 10:58 Resp 18 11/25/22 10:58 BP 138/75 11/25/22 10:58 Pulse Ox 95 11/25/22 10:58 O2 Del Method Room Air 11/25/22 07:34 O2 Flow Rate 6 11/23/22 16:20 Discharge Plan Discharge Patient Disposition: Home Condition: Stable Prescriptions: New (DME) Intraoperative Neurophysiological Testing See Rx Instructions .Route .MEDSUPPLY Qty: 1 0RF Rx Instructions: As directed hydrocodone-acetaminophen 5-325 mg Tablet 1 - 2 tab PO Q4H PRN (Reason: Postoperative pain control) Qty: 40 0RF Continued acetaminophen-codeine 300-30 mg tablet 1 tab PO BID PRN (Reason: Pain) omeprazole 20 mg tablet,delayed release (DR/EC) 20 mg PO DAILY multivitamin Tablet 1 tab PO DAILY fluconazole 150 mg tablet 150 mg PO DAILY Qty: 1 0RF rosuvastatin 10 mg tablet 10 mg PO DAILY olmesartan 20 mg tablet 40 mg PO DAILY Levemir Flexpen 70 units 34 units SUBCUT QAM metoprolol tartrate 50 mg Tablet 50 mg PO QPM Ozempic 0.25 mg or 0.5 mg (2 mg/3 mL) Pen Injector 0.25 mg SUBCUT Q7D Rx Instructions: ON MONDAY Discharge Orders: Discharge Order (Routine); Ordered 11/25/22 Ordered By: Tito Mehta Referrals: Hieu Martinez DO [Physician] - 12/01/22 8:30 am (Message sent to clinic.) Hannah Cardona FNP [Primary Care Provider] - 4-7 days (Clinic will call patient with appointment information.) Discharge Diet: Advance as tolerated Discharge Activity: Limit activity as instructed Patient Instructions: Hydrocodone/Acetaminophen (By mouth) (Vicodin, [place], Lortab), Lumbar Spinal Fusion (GEN), Opioid Safety Activity Restrictions/Additional Instructions: Thank you for choosing [facility] for your care! The following is a list of instructions, from your provider, to follow upon your discharge to ensure you have the optimal recovery from your recent injury or surgery. Follow-up care is a wong part of your treatment and safety. Be sure to make and go to all appointments and call your doctor if you are having problems. If you do not already have a follow-up appointment made, call Dr. Martinez's] office in the next 1-3 days to make follow up appointment for [1-2] weeks at [phone]. It is also a good idea to know your test results and keep a list of the medicines you take. Medications will be prescribed for you at your provider's discretion. These medications are to be used as instructed; if they are taken more often that prescribed they will not be refilled early and in most cases will not be refilled at all. > When a refill is needed, you should contact sandi buenrostro 2-3 business days before your prescription runs out. Medications will NOT be refilled by carton inspector providers after hours! > Many pain medications contain Tylenol (Acetaminophen). Do not consume more than 4,000 mg of Tylenol per day in total with any combination of medications. > Pain medications can cause constipation. Please use an over the counter stool softener as directed, while taking pain medications. Consult your local pharmacist with questions or recommendations on stool softeners. If constipation persists, contact our office or your primary care provider. > While under our care, you are not to receive pain medications or other controlled substances from any other provider unless our office is notified and approves. Any attempts to do so will result in refusal to prescribe any further pain medications and possible dismissal from our practice. ? Walking is essential for the healing process after surgery. We would like you to slowly advance your walking. This should be done on relatively flat clear ground (inside or out) or can be done on a treadmill. Remember this goal does not have to happen all at once, slowly increase your distance and duration. This can be broken into more more than one walk per day as tolerated. Patients who walk as directed after surgery rarely require Physical Therapy. In the unlikely event this issue arises your provider will direct hospital staff to make the appropriate arrangements. ? No lifting over 5 pounds {a gallon of milk) or bending/twisting until further notice. Each of these activities places an unnecessary amount of stress onto the body and can impede the delicate healing process. > Instead of bending at the waist, keep your back straight and bend at the knees. > Instead of twisting your torso, keep your back straight and turn your entire body with your feet. ? You may sleep in any position which makes you comfortable. Many patients find comfort sleeping in a reclining chair. It is not abnormal to have difficulty sleeping for the first several weeks following your surgery. We recommend trying Benadry! or Tylenol PM as directed to help with your sleeping difficulties. Both medications are over the counter and available without prescription. ? NO SMOKING!!! Smoking dramatically increases the probability of developing postoperative wound infections. ? Common complaints after lumbar and/or thoracic spine surgery include, but are not limited to: numbness and/or tingling in the legs, pain around the incision and surrounding tissues, muscle spasms, or stiffness of the middle to low back. Contact our office if these symptoms persist or if an acute change occurs. ? No driving for the first 3-5days, and not while taking narcotics until seen at your follow-up appointment and cleared. There are no restrictions for riding on short trips, however if you take a longer trip, arrangements should be made to make regular stops to get out of the vehicle and stretch . ? Swelling is an unfortunate event that will take place with any surgery and is the primary source of your postoperative discomfort. While walking and regular approved activities helps control inflammation, there are additional steps you can take to minimize swelling. > Place ice over the surgical site and surrounding tissue for twenty minutes, followed by applying a low/medium heat (heating pad) for an additional twenty minutes every 1-2 hours as needed for painrelief. > You may use of over the counter anti-inflammatory medications (Ibuprofen, Motrin, Aleve, Advil, etc) as directed on the package label. These types of medicines will significantly reduce the amount of discomfort you experience after surgery from swelling. It should be noted that if you have and allergy to any of these medications, or a history of ulcers or kidney disease you should consult you primary care provider prior to starting these medications. Discharge Attestations Time Spent in Discharge Care*: less than 30 min Quality Metrics Clinical Quality Measures [ No reported AMI, CVA or VTE this stay] Coding Level of Care Code Acute Code for Chg Fwd Diagnoses Status post lumbar spinal fusion Z98.1
--- NOTE | 2022-11-28 13:48 | W.PM.OPSUD ---
Surgery/Procedure H&P Update DATE OF PROCEDURE: November 28, 2022 DATE H&P PERFORMED: 10/27/22 H&P UPDATE INFORMATION: I have reviewed H&P completed within last 30 days, I have examined patient prior to procedure and No changes to prior documentation PREOP DIAGNOSIS: DDD lumbar spine, lumbar stenosis with neurogenic claudication PLANNED PROCEDURE: Operation Date: 11/23/22 12:25 Proposed Procedures p Posterior Lumbar Interbody Fusion(Not Applicable) - Hieu Martinez DO s L2 to the pelvis fusion with PLIF cage at L5-S1. And open SI joint fusions bilaterally.ecompression:[id number],49486,60241,31383,[id number] X 2,64947,M54.16,M48.062(Not Applicable) - Hieu Martinez DO
== END 2022-11-25 11:00 | disposition home or self-care (01) | DRG 455 ==
LOC: MEDSURG 11-24 07:14
PROVIDERS: Admitting Provider Orthopaedic Surgery; PCP Nurse Practitioner Family; Visit Provider Orthopaedic Surgery
PROC: 0SG00AJ Fusion of Lumbar Vertebral Joint with Interbody Fusion Device, Posterior Approach, Anterior Column, Open Approach (ICD-10-PCS; CPT 22612; principal; 2022-11-23 12:05)
PROC: 0SG00AJ Fusion of Lumbar Vertebral Joint with Interbody Fusion Device, Posterior Approach, Anterior Column, Open Approach (ICD-10-PCS; CPT 63005; 2022-11-23 12:05)
DX: M48.062 Spinal stenosis, lumbar region with neurogenic claudication (principal); M54.16 Radiculopathy, lumbar region; G89.29 Other chronic pain; E11.9 Type 2 diabetes mellitus without complications; E78.5 Hyperlipidemia, unspecified; I10 Essential (primary) hypertension; E66.9 Obesity, unspecified; Z68.28 Body mass index [BMI] 28.0-28.9, adult; Z79.85 Long-term (current) use of injectable non-insulin antidiabetic drugs; Z79.4 Long term (current) use of insulin; Z87.891 Personal history of nicotine dependence
CPT/HCPCS: 36416; 51702; 72100; 76000; 82962; 86850; 86900; 96372; 97161; 97530; C1713; C1762; J0330; J0690; J1100; J1170; J1644; J1815; J1885; J2270; J2371; J2405; J2704; J2765; J3010; J3370; J3490; J7030; J7120; P9045

== ENCOUNTER → 2022-12-06 15:08 | Outpatient (BNVA) | payer OTHER, SELFPAY | PROVIDERS: PCP Nurse Practitioner Family; Visit Provider Orthopaedic Surgery | DX: Z98.1 Arthrodesis status (principal) | CPT/HCPCS: 72100 ==

== ENCOUNTER → 2023-01-03 14:49 | Outpatient (BNVA) | payer OTHER, SELFPAY | PROVIDERS: PCP Nurse Practitioner Family; Visit Provider Physician Assistant | DX: Z98.1 Arthrodesis status (principal); Z47.89 Encounter for other orthopedic aftercare | CPT/HCPCS: 72100 ==

== ENCOUNTER → 2023-02-14 13:54 | Outpatient (BNVA) | payer BC, SELFPAY | PROVIDERS: PCP Nurse Practitioner Family; Visit Provider Physician Assistant | DX: Z98.1 Arthrodesis status (principal); Z47.89 Encounter for other orthopedic aftercare | CPT/HCPCS: 72100 ==

== ENCOUNTER 2023-03-07 13:08 | Outpatient (CLI) | payer BC, SELFPAY ==
--- NOTE | 2023-03-07 13:30 | CTR_ITS ---
PROCEDURE INFORMATION: Exam: CT Lumbar Spine Without Contrast Exam date and time: 03/07/2023 1:21 PM Age: 58 years old Clinical indication: Screening exam; Other; Hardware check; Weakness and pain going down left leg since surgery November 23, hardware check; Prior surgery; Surgery date: 1-6 months; Surgery type: L spine 11/23/22; Additional info: Hardware check, hardware check TECHNIQUE: Imaging protocol: Computed tomography of the lumbar spine without contrast. Radiation optimization: All CT scans at this facility use at least one of these dose optimization techniques: automated exposure control; mA and/or kV adjustment per patient size (includes targeted exams where dose is matched to clinical indication); or iterative reconstruction. REPORTING DATA: Count of CT and Cardiac NM exams in prior 12 months: This patient has received 0 known CTs and 0 known cardiac nuclear medicine studies in the 12 months prior to the current study. COMPARISON: MR lumbar spine wo con* [id number] 09/03/2022 7:24 AM RADIATION DOSE METRICS: Total DLP (mGy-cm): 630.04 FINDINGS: Bones/joints: Previous L2 through S1 fusion. Posterolateral bridging bone across all fused levels. Hardware appears intact. The left L2 pedicle screw is located far laterally and superiorly within the vertebral body with adjacent cortical fracture laterally, likely nonacute. No central canal stenosis. No bony neural foraminal narrowing. Previous laminectomies L3-L4, L4-L5, L5-S1. Soft tissues: Unremarkable. CT/CT lumbar spine wo con* [id number] IMPRESSION: L2 through S1 fusion. Left L2 pedicle screw appears to have reduced fracture along the superolateral margin of the L2 vertebral body which is likely nonacute. No central canal stenosis or bony neural foraminal narrowing.
== END 2023-03-07 13:09 | disposition home or self-care (01) ==
LOC: RAD 13:09
PROVIDERS: PCP Nurse Practitioner Family; Visit Provider Physician Assistant
DX: Z98.1 Arthrodesis status (principal)
CPT/HCPCS: 72131

== ENCOUNTER 2024-01-09 07:47 | Emergency (ER) | payer OTHER, BC, SELFPAY ==
[2024-01-09 07:51] VITALS: BP 175/109; PULSE 84; RESP 18; TEMP 36.3; O2SAT 100; BMI 26.0
--- NOTE | 2024-01-09 07:52 | ECG_ITS ---
[facility] Test Date: 2024-01-09 Pat Name: Mackenzie Raymond Department: Room: Gender: Female [employer]: : 1965 Requested By: Mac Smalls Order Number: [id number] Jesu MD: Naresh Grant M.D. Measurements Intervals [place] Rate: 93 P: 13 SC: 149 QRS: -45 QRSD: 80 T: 48 QT: 332 QTc: 414 Interpretive Statements SINUS RHYTHM LEFT AXIS DEVIATION [QRS AXIS < -30] LOW QRS VOLTAGE IN PRECORDIAL LEADS [QRS DEFLECTION < 1.0 mV IN CHEST LEADS] POSSIBLE ANTERIOR MYOCARDIAL INFARCTION , PROBABLY OLD [30 ms Q WAVE IN V3/V4, OR R < 0.2 mV IN V4] INTERPRETATION BASED ON A DEFAULT AGE OF 40 YEARS No previous ECG available for comparison Electronically Signed On 01-09-2024 23:29:08 CDT by Naresh Grant M.D. [email or web address]
[2024-01-09 08:03] VITALS: BP 175/109; PULSE 84; RESP 18; TEMP 36.3; O2SAT 100
--- NOTE | 2024-01-09 08:20 | XRR_ITS ---
PROCEDURE INFORMATION: Exam: XR Chest Exam date and time: 01/09/2024 8:25 AM Age: 58 years old Clinical indication: Pain; Angina pectoris; Prior surgery; Surgery date: 6+ months; Surgery type: Loop recorder; Additional info: Chest pain TECHNIQUE: Imaging protocol: Radiologic exam of the chest. Views: 1 view. COMPARISON: CT angio headneck* [id number] 06/30/2021 3:41 PM FINDINGS: Lungs: Unremarkable. No consolidation. Pleural spaces: Unremarkable. No pleural effusion. No pneumothorax. Heart/Mediastinum: Unremarkable. No cardiomegaly. There is a loop recorder overlying the left side of the chest. Bones/joints: Unremarkable. XR/XR chest 1V portable [id number] IMPRESSION: No acute findings.
[2024-01-09] MEDS: aspirin 81 mg Chew Tablet 324 MG PO (08:30)
--- NOTE | 2024-01-09 08:41 | W.ED.CHESTPA ---
HPI - Chest Pain General: Chief Complaint: Chest Pain Stated Complaint: high blood pressure chest presure Time Seen by Provider: 01/09/24 07:59 History of Present Illness: 58-year-old female presents emergency room with chest pain and elevated blood pressure. She was previously on olmesartan and metoprolol she has loop recorder and there were some pauses so the metoprolol was stopped she said since then blood pressure has been elevated. She did take a metoprolol this morning. It additionally to be elevated blood pressure she said to chest discomfort she describes it as feeling like a brick is on her chest feels like it is difficult to take a deep breath. The chest comfort discomfort has been ongoing for the last 24 hours. She has not noticed anything that exacerbates or relieves that she has no known history of heart disease. Associated symptoms: Deny abdominal pain, dyspnea or fever(s) Related Data Home Medications Medication Instructions Recorded Confirmed multivitamin 1 tab PO DAILY 11/16/22 01/09/24 clonazepam 0.5 mg tablet 0.5 mg PO TID PRN Anxiety 01/09/24 01/09/24 cyclobenzaprine 10 mg tablet 10 mg PO TID PRN MUSCLE SPASMS 01/09/24 01/09/24 insulin detemir U-100 100 unit/mL 18 unit SUBCUT QPM 01/09/24 01/09/24 (3 mL) subcutaneous pen (Levemir FlexPen) olmesartan 40 mg tablet 40 mg PO DAILY 01/09/24 01/09/24 semaglutide 1 mg/dose (4 mg/3 mL) 1 mg SUBCUT Q7D 01/09/24 01/09/24 subcutaneous pen injector (Ozempic) Previous Rx's Medication Instructions Recorded Intraoperative Neurophysiological #1 ea 11/21/22 Testing acetaminophen 300 mg-codeine 30 mg 1 tab PO Q4H PRN POst-op Pain #30 01/03/23 tablet tabs amlodipine 5 mg tablet 5 mg PO DAILY #30 tabs 01/09/24 Allergies Allergy/AdvReac Type Severity Reaction Status Date / Time naproxen Allergy abdominal Verified 02/14/23 14:13 pain Review of Systems Const: Denies: fever(s) or chills Card: Reports: chest pain Resp: Denies: dyspnea GI: Denies: abdominal pain : Denies: dysuria, urinary frequency or urinary urgency Musc: Denies: neck pain or back pain Skin/Breast: Denies: rash PFSH ED PFSH: Medical History Obesity No significant past medical history Diabetes Status post placement of implantable loop recorder Worsening angina Hyperlipidemia Hypertension Seizures Syncope Surgical History No significant past surgical history Family History Grandmother Dementia Mother Diabetes Father Hyperlipidemia Denies family history of Cancer Social History Smoking and tobacco/nicotine status: former use of tobacco/nicotine Quit status (tobacco/nicotine): has quit using Second hand smoke exposure: Yes Alcohol intake: never Substance/Drug Use: current Substance/Drug use frequency: daily Caregiver/support person: Yes Lives independently: Yes Physical Exam Const: GENERAL APPEARANCE: cooperative ORIENTATION/CONSCIOUSNESS: Yes awake, Yes oriented to person, Yes oriented to place and Yes oriented to time HENMT: COMMON NORMALS: normocephalic, atraumatic and hearing grossly normal bilaterally HEAD & SCALP: normocephalic and atraumatic Resp: COMMON NORMALS: normal respiratory effort, No retractions, No use of accessory muscles and clear to auscultation bilaterally AUSCULTATION: clear to auscultation bilaterally Cardio: COMMON NORMALS: regular rate, regular rhythm and No murmurs present (Cardio) RATE: regular rate RHYTHM: regular rhythm GI: COMMON NORMALS: Soft to palpation and No hepatosplenomegaly present AUSCULTATION: Yes normoactive bowel sounds PALPATION: Yes Soft to palpation, No Tenderness to palpation present (GI), No Guarding due to palpation present (GI) and Yes No hepatosplenomegaly present Extremity: COMMON NORMALS: normal to inspection, capillary refill normal, no clubbing, cyanosis or edema, no calf tenderness and no pedal edema Neuro: SENSORIUM/ORIENTATION: Yes oriented to person, Yes oriented to place and Yes oriented to time Skin: COMMON NORMALS: no rashes or lesions noted GENERAL SKIN EXAM: no rashes or lesions noted Course Vital Signs: Vital signs: Vital Signs Temperature 97.4 F L 01/09/24 08:03 Pulse Rate 74 01/09/24 10:29 Respiratory Rate 18 01/09/24 10:29 Blood Pressure 124/90 01/09/24 10:29 Pulse Oximetry 98 01/09/24 10:29 Oxygen Delivery Me thod Room Air 01/09/24 10:29 MDM - Chest Pain Medical Decision Making Chest pain is resolved EKG and cardiac enzymes were negative. Blood pressure is improved. In the past she had been on metoprolol but was taken off because a loop recorder had documented what she described as 4-second pauses. Her blood pressure is better now but she taken the metoprolol earlier. Recommend her avoiding the metoprolol instead we will give her amlodipine 5 mg daily continue the olmesartan. To follow-up with cardiology to recheck blood pressure within the next week. Additionally we will set her up for a Lexiscan sestamibi stress test. Reviewing chart she had on March 2020 which was normal. Lab Data 01/09/24 08:55 01/09/24 08:55 Radiology Impressions Chest X-Ray 01/09/24 08:20 IMPRESSION: No acute findings. Laboratory Results WBC 4.88 10^3/uL (3.29-11.43) 01/09/24 08:55 RBC 5.08 10^6/uL (3.85-5.65) 01/09/24 08:55 Hgb 15.20 g/dL (11.27-16.99) 01/09/24 08:55 Hct 43.7 % (36-47) 01/09/24 08:55 MCV 86.0 fl (85-98) 01/09/24 08:55 MCH 29.9 pg (27-33) 01/09/24 08:55 MCHC 34.8 g/dL (30-55) 01/09/24 08:55 RDW 12.2 % (12.1-15.1) 01/09/24 08:55 Plt Count 216 10^3/cmm (157-399) 01/09/24 08:55 MPV 9.3 fL (7.4-10.4) 01/09/24 08:55 Neut % (Auto) 43.5 % 01/09/24 08:55 Lymph % (Auto) 47.5 % 01/09/24 08:55 [place] % (Auto) 6.4 % 01/09/24 08:55 Eos % (Auto) 1.6 % 01/09/24 08:55 Baso % (Auto) 0.8 % 01/09/24 08:55 Neut # (Auto) 2.12 10^3/uL (1.8-7.7) 01/09/24 08:55 Lymph # (Auto) 2.3 10^3/uL (0.8-4.8) 01/09/24 08:55 [place] # (Auto) 0.3 10^3/uL (0.2-0.9) 01/09/24 08:55 Eos # (Auto) 0.1 10^3/uL (0.0-0.8) 01/09/24 08:55 Baso # (Auto) 0.0 10^3/uL (0.0-0.1) 01/09/24 08:55 Nucleated RBC % (auto) 0 % 01/09/24 08:55 Nucleated RBCs # 0.0 /100WBC 01/09/24 08:55 Sodium 142 mmol/L (136-145) 01/09/24 08:55 Potassium 4.1 mmol/L (3.5-5.1) 01/09/24 08:55 Chloride 106 mmol/L (98-107) 01/09/24 08:55 Carbon Dioxide 21 mmol/L (22-29) L 01/09/24 08:55 Anion Gap 19.1 (5-19) H 01/09/24 08:55 BUN 13 mg/dL (8-23) 01/09/24 08:55 Creatinine 0.7 mg/dL (0.5-0.9) 01/09/24 08:55 GFR Calculation 85.4 mL/min (90-130) L 01/09/24 08:55 Glucose 118 mg/dL (65-115) H 01/09/24 08:55 Calculated Osmolality 295 mOsm/kg (285-295) 01/09/24 08:55 Calcium 9.7 mg/dL (8.5-10.5) 01/09/24 08:55 Total Bilirubin 0.8 mg/dL (0.15-1.2) 01/09/24 08:55 AST 23 U/L (0-32) 01/09/24 08:55 ALT 20 U/L (0-33) 01/09/24 08:55 Alkaline Phosphatase 52 U/L (35-105) 01/09/24 08:55 Troponin T Baseline 8 ng/L (0-10) 01/09/24 08:55 Troponin T 120 Minute 6.19 ng/L (0-10) 01/09/24 10:54 Delta Troponin T -1.81 ABS# (0-10) L 01/09/24 10:54 Total Protein 8.0 g/dL (6.6-8.7) 01/09/24 08:55 Albumin 5.0 g/dL (3.5-5.2) 01/09/24 08:55 Globulin 3.0 g/dL (1.3-4.6) 01/09/24 08:55 Urine Color Yellow (Yellow) 01/09/24 09:30 Urine Appearance Clear (CLEAR) 01/09/24 09:30 Urine pH 6 (5-7) 01/09/24 09:30 Ur Specific [place] 1.010 (1.005-1.030) 01/09/24 09:30 Urine Protein Neg (Negative) 01/09/24 09:30 Urine Glucose (UA) Norm (Normal) 01/09/24 09:30 Urine Ketones Negative (Negative) 01/09/24 09:30 Urine Blood Neg (Negative) 01/09/24 09:30 Urine Nitrate Negative (Negative) 01/09/24 09:30 Urine Bilirubin Neg (Negative) 01/09/24 09:30 Urine Urobilinogen Norm mg/dL (Negative) 01/09/24 09:30 Ur Leukocyte Esterase Trace (Negative) H 01/09/24 09:30 Urine RBC Rare /hpf (0-2) 01/09/24 09:30 Urine WBC 0-4 /hpf (0-5) H 01/09/24 09:30 Ur Squamous Epith Cells 0-4 /hpf (0-5) H 01/09/24 09:30 Amorphous Sediment Not Reportable 01/09/24 09:30 Urine Bacteria None /hpf (NONE) 01/09/24 09:30 Urine Mucus Trace /hpf 01/09/24 09:30 All radiology interpretation(s) finalized by discharge Discharge Plan Discharge Patient Disposition: Home Clinical Impression: HTN (hypertension), Atypical chest pain Condition: Stable Prescriptions: New amlodipine 5 mg tablet 5 mg PO DAILY Qty: 30 0RF Discontinued metoprolol succinate 50 mg tablet extended release 24 hr 50 mg PO QAM No Action multivitamin Tablet 1 tab PO DAILY acetaminophen-codeine 300-30 mg tablet 1 tab PO Q4H PRN (Reason: POst-op Pain) Qty: 30 0RF (DME) Intraoperative Neurophysiological Testing See Rx Instructions .Route .MEDSUPPLY Qty: 1 0RF Rx Instructions: As directed cyclobenzaprine 10 mg tablet 10 mg PO TID PRN (Reason: MUSCLE SPASMS) clonazepam 0.5 mg tablet 0.5 mg PO TID PRN (Reason: Anxiety) olmesartan 40 mg tablet 40 mg PO DAILY Levemir FlexPen 100 unit/mL (3 mL) insulin pen 18 unit SUBCUT QPM Ozempic 1 mg/dose (4 mg/3 mL) pen injector 1 mg SUBCUT Q7D Rx Instructions: ON MONDAY Discharge Orders: Discharge ED (Routine); Ordered 01/09/24 Ordered By: Mac Thompson Referrals: Hannah Cardona FNP [Primary Care Provider] - Patient Instructions: Opioid Safety, Pain Management Activity Restrictions/Additional Instructions: Thank you for choosing [facility] for your healthcare needs today. It is very important that you follow up as instructed or that you return to the Emergency Department should you have concerns or if your condition changes or worsens in any way. You are seen emergency room today for elevated blood pressure chest comfort cardiac enzymes and EKG did not show any acute changes. We do recommend that you continues to hold the metoprolol because of the previous pauses and your heart rate. Instead take amlodipine 5 mg daily you should follow-up with Dr. Costa's office within the next week to reevaluate. Coding Level of Care Code ED Rn Clinical Resource for Kishor Chaney
--- NOTE | 2024-01-09 09:24 | PC.NURSE ---
assumed care for PT at 0835. no IV accessed or labs obtained prior to this nurse taking over care.
[2024-01-09 09:27] LABS: Basophils % 0.8 %; Eosinophils # 0.1 10^3/uL (0.0-0.8); Eosinophils % 1.6 %; Hematocrit 43.7 % (36-47); Lymphocytes # 2.3 10^3/uL (0.8-4.8); Lymphocytes % 47.5 %; Mean Corpuscular HGB Conc 34.8 g/dL (30-55); Mean Corpuscular Hemoglobin 29.9 pg (27-33); Mean Platelet Volume 9.3 fL (7.4-10.4); Monocytes # 0.3 10^3/uL (0.2-0.9); Monocytes % 6.4 %; Neutrophils # 2.12 10^3/uL (1.8-7.7); Neutrophils % 43.5 %; Nucleated Red Blood Cells % 0 %; Platelet Count 216 10^3/cmm (157-399); Red Blood Count 5.08 10^6/uL (3.85-5.65); Red Cell Distribution Width 12.2 % (12.1-15.1); White Blood Count 4.88 10^3/uL (3.29-11.43)
[2024-01-09 09:46] LABS: Alanine Aminotransferase 20 U/L (0-33); Alkaline Phosphatase 52 U/L (35-105); Anion Gap 19.1 (5-19); Aspartate Amino Transferase 23 U/L (0-32); Blood Urea Nitrogen 13 mg/dL (8-23); Calcium 9.7 mg/dL (8.5-10.5); Carbon Dioxide 21 mmol/L (22-29); Chloride 106 mmol/L (98-107); Glomerular Filtration Rate 85.4 mL/min (90-130); Glucose 118 mg/dL (65-115); Osmolality Calculated 295 mOsm/kg (285-295); Potassium 4.1 mmol/L (3.5-5.1); Sodium 142 mmol/L (136-145); Total Bilirubin 0.8 mg/dL (0.15-1.2)
[2024-01-09 09:52] LABS: Troponin(5th) Baseline 8 ng/L (0-10)
[2024-01-09 09:58] LABS: Charge for UA Resulting for Rev
[2024-01-09 10:07] LABS: Blood Urine Neg (Negative); Glucose Urine UA Norm (Normal); Ketones Urine Negative (Negative); Nitrate Urine Negative (Negative); Protein Urine Neg (Negative); Urine Appearance Clear (CLEAR); Urine Color Yellow (Yellow); pH Urine 6 (5-7)
[2024-01-09 10:08] LABS: Bilirubin Urine Neg (Negative); Leukocyte Esterase Urine Trace (Negative); UA Manual Slide Review YES; UA Slide Review UA Slide Review Perf; Urobilinogen Urine Norm (Negative)
[2024-01-09 10:28] LABS: Mucus Urine TRACE /hpf; RBC Urine RARE /hpf (0-2); Squamous Epithelial Cell Urine 0-4 /hpf (0-5); WBC Urine 0-4 /hpf (0-5)
[2024-01-09 10:29] VITALS: BP 124/90; PULSE 74; RESP 18; O2SAT 98
[2024-01-09 10:29] LABS: Add Urine Culture? No
--- NOTE | 2024-01-09 11:00 | PC.PHAR ---
PT STATES SHE TOOK METOPROLOL ER 50MG AT HOME THIS MORNING. IT WAS DC'D BY PHYSICIAN BUT SHE STILL HAD SOME LEFT. PT HAS BOTTLE IN THE ROOM AND NORMALLY DOES NOT TAKE A MAINTENANCE MEDICATION.
[2024-01-09 11:17] LABS: Troponin 5 2HR 6.19 ng/L (0-10)
[2024-01-09 11:20] LABS: Troponin 5 2HR Delta -1.81 ABS# (0-10)
[2024-01-09 12:17] VITALS: BP 123/77; PULSE 76; RESP 18; TEMP 36.3; O2SAT 100
--- NOTE | 2024-01-11 07:25 | DCPLANNER ---
faxed outpatient lexiscan order to scheduling for er f/u
== END 2024-01-09 12:19 | disposition home or self-care (01) ==
PROVIDERS: Emergency Provider Family Medicine; PCP Nurse Practitioner Family
DX: R07.89 Other chest pain (principal); I10 Essential (primary) hypertension; Z79.4 Long term (current) use of insulin; Z79.85 Long-term (current) use of injectable non-insulin antidiabetic drugs; Z87.891 Personal history of nicotine dependence; E11.9 Type 2 diabetes mellitus without complications; E78.5 Hyperlipidemia, unspecified
CPT/HCPCS: 71045; 80053; 81003; 81015; 84484; 85025; 93005; 99285

== ENCOUNTER 2025-02-07 07:23 | Outpatient (CLI) | payer OTHER, BC, SELFPAY ==
--- NOTE | 2025-02-07 07:30 | CT_ITS ---
WS: [id number] CT THORACIC SPINE WITH CONTRAST HISTORY: CHRONIC MIDLINE THORACIC BACK PAIN Technique: All CT scans at [facility] use at least one of these dose optimization techniques: automated exposure control; mA and/or kV adjustment per patient size (includes targeted exams where dose is matched to clinical indication); or iterative reconstruction. DLP: 408.73 mGy.cm COMPARISON: Radiograph 01/29/2025 Contrast: Omnipaque 350; 100 cc. Normal thoracic alignment. No destructive bone lesions are identified. Disc spaces are narrowed. Most significant disc space narrowing with osteophytosis is at T7-8 and T8-9. Facet joints are normally aligned. No lytic or blastic process. Advanced degenerative spondylitic changes at C6-7. No high-grade central stenosis. Facet joint arthropathy and vertebral body osteophytes resulting in mild foraminal stenosis at T6-7, T7-8 and T8-9. No paravertebral soft tissue mass. No abnormal enhancement. Incidental note is made of a 9 mm LEFT thyroid nodule. The visualized thoracic aorta contains atherosclerotic plaque. Normal adrenal glands. Paraspinal soft tissues are negative. Cardiac loop recorder and posterior lumbosacral fusion noted on the localizer. CT/CT thoracic spine w con [id number] IMPRESSION: 1. No high-grade central stenosis. 2. No large disc protrusions. 3. Mild to moderate thoracic spondylosis. Most significant degenerative change s are at T7-8 and T8-9. 4. No paravertebral soft tissue mass. 5. 9 mm LEFT thyroid nodule.
[2025-02-07] MEDS: iohexol 350 mg/mL 500 mL Btl (per mL) IV (08:09)
[2025-02-07 08:43] LABS: Blood Urea Nitrogen 9 mg/dL (8-23)
== END 2025-02-07 07:24 | disposition home or self-care (01) ==
PROVIDERS: Absent Provider Surgery; PCP Nurse Practitioner Family; Visit Provider Nurse Practitioner Family
DX: M54.6 Pain in thoracic spine (principal); M47.814 Spondylosis without myelopathy or radiculopathy, thoracic region; R91.1 Solitary pulmonary nodule
CPT/HCPCS: 72129; 82565; 84520

== ENCOUNTER 2025-05-16 10:51 | Outpatient (CLI) | payer OTHER, BC, SELFPAY ==
--- NOTE | 2025-05-16 10:56 | MM_ITS ---
WS: [id number] BILATERAL 3D TOMOSYNTHESIS DIGITAL SCREENING MAMMOGRAPHY WITH CAD CLINICAL INFORMATION: SCREEN HISTORY: Screening mammogram. No current complaints. COMPARISON: 2020 TECHNIQUE: Bilateral CC and MLO views. FINDINGS: The breasts are composed of heterogeneous fibroglandular density tissue, which can limit the detection of small underlying mass lesions. New cluster of calcifications lower outer LEFT breast developed since 2020. Recommend further evaluation with spot magnification views. Unremarkable RIGHT breast MM/MM scr tomosynthesis [id number] IMPRESSION: DENSITY: The breasts are heterogeneously dense, which may obscure small masses. BI-RADS: 0 - Incomplete: Need additional imaging evaluation FOLLOW UP: Need Additional Imaging Recommend spot magnification views of the clustered calcifications LEFT breast
== END 2025-05-16 10:52 | disposition home or self-care (01) ==
LOC: RAD 10:52
PROVIDERS: PCP Nurse Practitioner Family; Visit Provider Nurse Practitioner Family
DX: Z12.31 Encounter for screening mammogram for malignant neoplasm of breast (principal); R92.333 Mammographic heterogeneous density, bilateral breasts; R92.1 Mammographic calcification found on diagnostic imaging of breast
CPT/HCPCS: 77063; 77067